=== PATIENT | female | born 1955 | race Hispanic/Latino ===

== ENCOUNTER 2016-11-14 22:35 | Observation (INO) | payer BC ==
[2016-11-14 23:21] VITALS: BMI 31.9
--- NOTE | 2016-11-15 00:25 | ED PDOC ---
Arrival/HPI - General Chief Complaint: GI Problem Time Seen by Provider: 11/14/16 23:58 Historian: Patient, Family - History of Present Illness Narrative History of Present Illness (Text): 11/15/16 00:14 Geena Dykes is a 61 year old female who presents to the emergency department for evaluation of hallucinations and delusions for past two days. According to family, patient thinks that she is being spied upon by neighbors and "are out to get her." They state that she has not experienced psychotic episodes before. Patient states that she had a lumbar spine epidural shot for chronic lower back pain 2 weeks prior, and currently complains of mild back pain. Denies any headache, dizziness, chest pain, difficulty breathing, nausea, vomiting, diarrhea, or any other complaints at this time. Time/Duration: < week Symptom Onset: Gradual Symptom Course: Unchanged Severity Level: Mild Activities at Onset: Light Context: Home Past Medical History - Provider Review Nursing Documentation Reviewed: Yes - Infectious Disease Hx of Infectious Diseases: None - Tetanus Immunization Tetanus Immunization: Unknown - Reproductive Menopause: Yes - Cardiac Hx Hypertension: Yes Hx Pacemaker: No - Neurological Hx Paralysis: No - Endocrine/Metabolic Hx Diabetes Mellitus Type 2: Yes - Hematological/Oncological Hx Blood Transfusions: No Hx Blood Transfusion Reaction: No - Musculoskeletal/Rheumatological Hx Musculoskeletal Disorders: Yes - Gastrointestinal Other/Comment: Gastric bypass - Psychiatric Hx Emotional Abuse: No Hx Hallucinations: Yes Hx Physical Abuse: No Hx Substance Use: No - Surgical History Hx Dilation and Curettage: Yes Other/Comment: Gastric bypass. Polyp removal from vag bleed - Anesthesia Hx Anesthesia: Yes Hx Anesthesia Reactions: No Hx Malignant Hyperthermia: No - Suicidal Assessment Feels Threatened In Home Enviroment: No Family/Social History - Physician Review Nursing Documentation Reviewed: Yes Family/Social History: No Known Family HX Smoking Status: Light Smoker < 10 Cigarettes Daily Hx Alcohol Use: Yes Frequency of alcohol use: Few days per week Hx Substance Use: No Hx Substance Use Treatment: Yes Allergies/Home Meds Allergies/Adverse Reactions: Allergies No Known Allergies Allergy (Verified 11/16/16 19:42) Home Medications: Home Meds Medication Instructions Recorded Confirmed Aspirin [[place] Aspirin] 1 tab DAILY 11/15/16 11/15/16 tiZANidine [Zanaflex] 5 mg PO DAILY 11/15/16 11/15/16 traMADol [Ultram] 50 mg PO Q6H PRN 11/15/16 11/15/16 Review of Systems - Physician Review All systems were reviewed & negative as marked: Yes - Review of Systems Constitutional: Normal. absent: Fatigue, Fevers Respiratory: Normal. absent: SOB, Cough Cardiovascular: Normal. absent: Chest Pain, Palpitations Gastrointestinal: Normal. absent: Abdominal Pain, Diarrhea, Nausea, Vomiting Neurological: Normal. absent: Headache, Dizziness Psychiatric: Other (hallucinations and delusion ) Physical Exam Vital Signs Reviewed: Yes Vital Signs Temp Pulse Resp BP Pulse Ox 11/15/16 05:24 66 18 123/65 99 11/15/16 01:00 72 18 128/79 98 11/14/16 23:27 99.0 F 79 18 131/80 100 Temperature: Afebrile Blood Pressure: Normal Pulse: Regular Respiratory Rate: Normal Appearance: Positive for: Well-Appearing, Non-Toxic, Comfortable Pain Distress: None Mental Status: Positive for: Alert and Oriented X 3 - Systems Exam Head: Present: Atraumatic, Normocephalic Pupils: Present: PERRL Conjunctiva: Present: Normal Mouth: Present: Moist Mucous Membranes Respiratory/Chest: Present: Clear to Auscultation, Good Air Exchange. No: Respiratory Distress, Accessory Muscle Use Cardiovascular: Present: Regular Rate and Rhythm, Normal S1, S2. No: Murmurs Abdomen: Present: Normal Bowel Sounds. No: Tenderness, Distention, Peritoneal Signs Back: Present: Normal Inspection Upper Extremity: Present: Normal Inspection. No: Cyanosis, Edema Lower Extremity: Present: Normal Inspection. No: Edema Neurological: Present: GCS=15, CN II-XII Intact, Speech Normal Skin: Present: Warm, Dry, Normal Color. No: Rashes Psychiatric: Present: Alert, Oriented x 3, Delusional, Hallucinations Medical Decision Making ED Course and Treatment: 11/15/16 00:27 Impression: A 61 year old female who presents to the emergency department complaining of hallucinations and delusion for past 2 days. Plan: -- CT Head -- EKG -- Labs -- Alcohol level -- Druig Screen -- Chest X-ray -- Tylenol -- blood culture -- Reassess and disposition Progress Notes: 11/15/16 05:46 CT Head results reviewed: FINDINGS: Brain: No acute intracranial hemorrhage. No significant white matter disease. No edema. Ventricles: No significant ventriculomegaly. Bones: No acute displaced fracture. Sinuses: Unremarkable as visualized. No acute sinusitis. Mastoid air cells: Unremarkable as visualized. No mastoid effusion. IMPRESSION: No acute intracranial hemorrhage, or suspicious mass effect. Case discussed with who is aware and agrees with the plan to observe patient at Med/Surg for Altered mental status. Accepts patient under his service. 11/16/16 22:27 - Lab Interpretations Microbiology Results: Microbiology Results 11/15/16 02:50 Blood-Venous Blood Culture - Preliminary NO GROWTH AFTER 24 HOURS 11/15/16 02:25 Blood-Venous Blood Culture - Preliminary NO GROWTH AFTER 24 HOURS Lab Results: 11/15/16 02:25 11/15/16 02:25 Lab Results 11/15/16 03:00: Hemoglobin A1c 5.4 11/15/16 02:25: Acetaminophen < 10.0 L 11/15/16 02:25: Alcohol, Quantitative < 10 11/15/16 02:25: Urine Opiates Screen Negative, Urine Methadone Screen Negative, Ur Barbiturates Screen Negative, Ur Phencyclidine Scrn Negative, Ur Amphetamines Screen Negative, U Benzodiazepines Scrn Negative, U Oth Cocaine Metabols Negative, U Cannabinoids Screen Negative 11/15/16 02:25: Sodium 136, Potassium 3.8, Chloride 102, Carbon Dioxide 27, Anion Gap 11, BUN 29 H, Creatinine 0.8, Est GFR ( Amer) > 60, Est GFR ( Non-Af Amer) > 60, Random Glucose 82, Calcium 8.9, Phosphorus 3.4, Magnesium 2.3 H, Total Bilirubin 0.7, AST 35, ALT 49, Alkaline Phosphatase 41, Lactate Dehydrogenase 525, Total Creatine Kinase 242 H, CK-MB (CK-2) 2.3, CK-MB (CK-2) % Cancelled, Troponin I < 0.01, Total Protein 7.0, Albumin 3.9, Globulin 3.1, Albumin/Globulin Ratio 1.3 11/15/16 02:25: Urine Color Yellow, Urine Appearance Sl cloudy, Urine pH 6.0, Ur Specific [place] 1.020, Urine Protein Negative, Urine Glucose (UA) Negative, Urine Ketones Negative, Urine Blood Moderate H, Urine Nitrate Negative, Urine Bilirubin Negative, Urine Urobilinogen 0.2, Ur Leukocyte Esterase Negative, Urine RBC 1 - 3, Urine WBC 0 - 2, Ur Epithelial Cells 1 - 3, Urine Bacteria Small, Hyaline Casts 0 - 2 11/15/16 02:25: PT 10.7, INR 0.99, APTT 24.6 11/15/16 02:25: WBC 6.4 D, RBC 3.45 L, Hgb 12.0, Hct 34.9 L, MCV 101.2, MCH 34.8, MCHC 34.4, RDW 12.9, Plt Count 248, MPV 8.8, Gran % 64.3, Lymph % (Auto) 25.0, Curry % (Auto) 9.1 H, Eos % (Auto) 1.3 L, Baso % (Auto) 0.3, Gran # 4.11, Lymph # 1.6, Curry # 0.6, Eos # 0.1, Baso # 0.02 I have reviewed the lab results: Yes - RAD Interpretation Radiology Orders: 11/15/16 00:27 HEAD W/O CONTRAST [CT] Stat 11/15/16 00:28 CHEST ONE VIEW [RAD] Stat - Medication Orders Current Medication Orders: Discontinued Medications Acetaminophen (Tylenol 325mg Tab) 650 mg PO Q4H PRN PRN Reason: Pain, Mild (1-3) Last Admin: 11/16/16 16:28 Dose: 650 mg Aspirin (Aspirin Chewable) 81 mg PO DAILY [facility] Last Admin: 11/16/16 10:01 Dose: 81 mg Docusate Sodium (Colace) 100 mg PO BID [facility] Last Admin: 11/16/16 10:01 Dose: 100 mg Famotidine (Pepcid) 40 mg PO HS [facility] Last Admin: 11/15/16 21:20 Dose: 40 mg Heparin Sodium (Porcine) (Heparin) 5,000 units SC Q8 [facility] PRN Reason: Protocol Last Admin: 11/16/16 14:35 Dose: 5,000 units Hydrochlorothiazide (Microzide) 12.5 mg PO DAILY [facility] Last Admin: 11/16/16 10:01 Dose: 12.5 mg Insulin Human Lispro (Humalog Low) 0 units SC ACHS [facility] PRN Reason: Protocol Last Admin: 11/16/16 11:42 Dose: Not Given Non-Admin Reason: Blood Sugar Parameter Iohexol (Omnipaque 350 100 Ml) Confirm Administered Dose 350 mg .ROUTE .STK-MED ONE Stop: 11/15/16 17:57 Losartan Potassium (Cozaar) 100 mg PO DAILY [facility] Last Admin: 11/16/16 10:01 Dose: 100 mg Nicotine (Nicoderm Cq) 1 patch TD DAILY [facility] Last Admin: 11/16/16 10:01 Dose: 1 patch Quetiapine Fumarate (Seroquel) 50 mg PO HS [facility] PRN Reason: Protocol Last Admin: 11/15/16 21:20 Dose: 50 mg Re-Assess: Reassess Psych Meds Document 11/15/16 22:20 KGD (Rec: 11/16/16 03:30 KGD [id number]) Reassess Psych Med Effective Quetiapine Fumarate (Seroquel) 100 mg PO HS [facility] PRN Reason: Protocol Tizanidine HCl (Zanaflex) 4 mg PO DAILY [facility] Last Admin: 11/16/16 10:01 Dose: 4 mg - Daliaibe Statement The provider has reviewed the documentation as recorded by the Mary Alice Cooper Provider Attestation: All medical record entries made by the Mary Alice were at my direction and personally dictated by me. I have reviewed the chart and agree that the record accurately reflects my personal performance of the history, physical exam, medical decision making, and the department course for this patient. I have also personally directed, reviewed, and agree with the discharge instructions and disposition. Disposition/Present on Arrival - Present on Arrival Any Indicators Present on Arrival: No History of DVT/PE: No History of Uncontrolled Diabetes: No Urinary Catheter: No History of Decub. Ulcer: No History Surgical Site Infection Following: None - Disposition Have Diagnosis and Disposition been Completed?: Yes Diagnosis: Altered mental status, unspecified Disposition: HOSPITALIZED Disposition Time: 04:40 Condition: GOOD
[2016-11-15 02:40] LABS: ADD MANUAL DIFF? NO
[2016-11-15 02:45] LABS: BASO # 0.02 K/mm3 (0.0-2.0); BASO % 0.3 % (0.0-3.0); EOS # 0.1 (0.0-0.7); EOS % 1.3 % (1.5-5.0); GRAN # 4.11 (1.4-6.5); GRAN % 64.3 % (50.0-68.0); HEMATOCRIT 34.9 % (36.0-48.0); LYMPH # 1.6 (1.2-3.4); MEAN CELL VOLUME 101.2 fL (80.0-105.0); MEAN CORPUSCULAR HEMOGLOBIN 34.8 pg (25.0-35.0); MEAN CORPUSCULAR HGB CONC 34.4 g/dl (31.0-37.0); MEAN PLATELET VOLUME 8.8 fl (7.0-11.0); MONO # 0.6 (0.1-0.6); MONO % 9.1 % (1.0-6.0); PLATELET COUNT 248 10^3/uL (120.0-450.0); RED CELL DISTRIBUTION WIDTH 12.9 % (11.5-14.5); WHITE BLOOD COUNT 6.4 10^3/ul (4.5-11.0)
[2016-11-15 02:54] LABS: URINE BILIRUBIN NEGATIVE (NEGATIVE); URINE BLOOD MODERATE (NEGATIVE); URINE GLUCOSE (UA) NEGATIVE (NEGATIVE); URINE KETONE NEGATIVE (NEGATIVE); URINE LEUKOCYTE ESTERASE NEGATIVE Leu/uL (NEGATIVE); URINE PROTEIN NEGATIVE mg/dL (<30 mg/dL); URINE UROBILINOGEN 0.2 E.U./dL (<1 E.U./dL)
[2016-11-15 02:55] LABS: URINE APPEARANCE SL CLOUDY (CLEAR); URINE COLOR YELLOW (YELLOW)
[2016-11-15 03:00] LABS: INR 0.99 (0.93-1.08); PARTIAL THROMBOPLASTIN TIME 24.6 Seconds (23.7-30.8)
[2016-11-15 03:03] LABS: ALB/GLOB RATIO 1.3 (1.1-1.8); ALKALINE PHOSPHATASE 41 U/L (38-133); ALT/SGPT 49 U/L (7-56); AST/SGOT 35 U/L (15-39); BILIRUBIN,TOTAL 0.7 mg/dL (0.2-1.3); BLOOD UREA NITROGEN 29 mg/dL (7-21); CALCIUM 8.9 mg/dL (8.4-10.5); CARBON DIOXIDE 27 mmol/L (21-33); CHLORIDE 102 mmol/L (98-107); GFR AFRICAN-AMERICAN > 60; GLUCOSE,RANDOM 82 mg/dL (70-110); MAGNESIUM 2.3 mg/dL (1.7-2.2); PHOSPHOROUS 3.4 mg/dL (2.5-4.5); POTASSIUM 3.8 mmol/L (3.6-5.0); SODIUM 136 mmol/L (132-148)
[2016-11-15 03:04] LABS: URINE BACTERIA SMALL (NEG); URINE WBC 0 - 2 /hpf (0-6)
[2016-11-15 03:16] LABS: TROPONIN I < 0.01 ng/mL
--- NOTE | 2016-11-15 06:57 | CP.PCM.HP ---
<Nelda Quiroz - Last Filed: 11/15/16 14:02> History of Present Illness - History of Present Illness History of Present Illness: CC: I haven't been feeling well . Patient is a 61 y/o with PMH of htn, DM, gastric bypass surgery , chronic constipation, OA of the L spine, active tobacco use, brought in by her son for evaluation of hallucination and dilutional behavior. As per patient's son, for the past 2 days patient has been very anxious. In addition, patient's son states patient also thinks neighbors are spying on her, and patient is been very overwhelmed and disoriented that patient left the stove on unattended yesterday. Patient is been sleeping poorly, and last night stopped communicating with the family. As per patient, she has been under a lot of stress lately, has been sleeping, partially because of family demand. Patient denies history for psych disorder. Patient admits to anxiety, insomnia and depression. Patient denies cp, sob, n/v/d. Patient abdominal pain, constipation ( last bowel movement yesterday), denies fever, chills. PMH: As mentioned above PSH: gastric bypass, exp lap Social: smokes a pack a day for over 20 years, drinks a liter of alcohol a day when stressed, denies illicit drug use. 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 Allergy: NKDA Home meds: please see emr for full list. Present on Admission - Present on Admission Any Indicators Present on Admission: No History of DVT/PE: No History of Uncontrolled Diabetes: No Urinary Catheter: No Decubitus Ulcer Present: No Review of Systems - Review of Systems All systems: reviewed and no additional remarkable complaints except Review of Systems: Please see emr for full list. - Neurological Neurological: absent: Dizziness, Numbness, Headaches, Loss of Vision, Syncope - Psychiatric Psychiatric: Anxiety, Behavioral Changes, Hallucinations, Hopelessness, Mood Swings, Panic Attacks. absent: Confusion, Suicidal Ideation Past Patient History - Infectious Disease Hx of Infectious Diseases: None - Tetanus Immunizations Tetanus Immunization: Unknown - Past Medical History & Family History Past Medical History?: Yes - Past Social History Smoking Status: Heavy Smoker > 10 Cigarettes Daily Alcohol: None Drugs: Denies Home Situation {Lives}: With Family - CARDIAC Hx Hypertension: Yes Hx Pacemaker: No - NEUROLOGICAL Hx Paralysis: No - ENDOCRINE/METABOLIC Hx Diabetes Mellitus Type 2: Yes - HEMATOLOGICAL/ONCOLOGICAL Hx Blood Transfusions: No Hx Blood Transfusion Reaction: No - MUSCULOSKELETAL/RHEUMATOLOGICAL Hx Musculoskeletal Disorders: Yes - GASTROINTESTINAL Other/Comment: Gastric bypass - PSYCHIATRIC Hx Emotional Abuse: No Hx Hallucinations: Yes Hx Physical Abuse: No Hx Substance Use: No - SURGICAL HISTORY Hx Dilation and Curettage: Yes Other/Comment: Gastric bypass. Polyp removal from vag bleed - ANESTHESIA Hx Anesthesia: Yes Hx Anesthesia Reactions: No Hx Malignant Hyperthermia: No Meds Allergies/Adverse Reactions: Allergies Allergy/AdvReac Type Severity Reaction Status Date / Time No Known Allergies Allergy Verified 11/21/16 10:45 Physical Exam - Constitutional Appears: No Acute Distress - Head Exam Head Exam: ATRAUMATIC, NORMAL INSPECTION, NORMOCEPHALIC - Eye Exam Eye Exam: EOMI, Normal appearance, PERRL. absent: Scleral icterus - ENT Exam ENT Exam: Mucous Membranes Moist - Neck Exam Neck exam: Positive for: Normal Inspection - Respiratory Exam Respiratory Exam: Clear to Auscultation Bilateral, NORMAL BREATHING PATTERN. absent: Rales, Rhonchi, Wheezes, Respiratory Distress, Stridor - Cardiovascular Exam Cardiovascular Exam: REGULAR RHYTHM, RRR, +S1, +S2. absent: Irregular Rhythm, Systolic Murmur - GI/Abdominal Exam GI & Abdominal Exam: Normal Bowel Sounds, Soft. absent: Distended (obese abdomen. ), Guarding, Hernia, Rigid, Tenderness - Extremities Exam Extremities exam: Positive for: normal inspection - Back Exam Back exam: NORMAL INSPECTION - Neurological Exam Neurological exam: Alert, CN II-XII Intact, Oriented x3, Reflexes Normal Additional comments: No focal neurologic deficit, patient speaking in full sentences. - Psychiatric Exam Psychiatric exam: Anxious - Skin Skin Exam: Dry, Intact, Normal Color, Warm Results - Vital Signs Recent Vital Signs: Last Vital Signs Temp 99.0 F 11/14/16 23:27 Pulse 66 11/15/16 05:24 Resp 18 11/15/16 05:24 BP 123/65 11/15/16 05:24 Pulse Ox 99 11/15/16 05:24 - Labs Result Diagrams: 11/15/16 02:25 11/15/16 02:25 Assessment & Plan - Assessment and Plan (Free Text) Assessment: Patient is a 61 y/o with pmh of htn, NIDDM, OA, active tobacco abuse presenting with AMS. Plan: 1) AMS likely delirium secondary to insomnia/stress - R/o infection, R/o CVA, R/o metabolic disorder - CT head with no acute finding - ua normal, urine and blood cultures are sent. - will obtain tsh, hgba1c, vitamin b12, folate - chest x-ray is normal - utox normal - neuro and psych consult. - continue asa. 2) NIDDM2 - will hold janumet - ISS - Accuchekc ACHS - Carb controlled diet 3) HTN - Will resume losartan and hctz 4) L spine OA - will continue tizanidine. 5) Constipation- will start colase 6) Active tobacco use - Nicotine patch. 7) DVT/GI prophylaxis: heparin sc and pepcid Patient seen, examined, case discussed with Dr Villanueva. - Date & Time Date: 11/15/16 Time: 07:00 <Urbano Villanueva - Last Filed: 12/07/16 13:49> Results - Vital Signs Recent Vital Signs: Last Vital Signs Temp 98.1 F 11/16/16 16:00 Pulse 88 11/16/16 16:00 Resp 20 11/16/16 16:00 BP 136/59 L 11/16/16 16:00 Pulse Ox 95 11/16/16 16:00 - Labs Result Diagrams: 11/16/16 06:20 11/16/16 06:20 Attending/Attestation - Attestation I have personally seen and examined this patient.: Yes I have fully participated in the care of the patient.: Yes I have reviewed all pertinent clinical information: Yes Notes (Text): 12/07/16 13:49 Resident note done after seen and examined by me with discussion. The note is a representation of my history, physical and plan for patient.
--- NOTE | 2016-11-15 07:49 | CT ---
PROCEDURE: CT HEAD WITHOUT CONTRAST. HISTORY: ams COMPARISON: None available. TECHNIQUE: Axial computed tomography images were obtained through the head/brain without intravenous contrast. Radiation dose: Total exam DLP = 689.24 mGy-cm. This CT exam was performed using one or more of the following dose reduction techniques: Automated exposure control, adjustment of the mA and/or kV according to patient size, and/or use of iterative reconstruction technique. FINDINGS: HEMORRHAGE: No intracranial hemorrhage. BRAIN: No mass effect or edema. No atrophy or chronic microvascular ischemic changes. No evidence of acute infarct peer VENTRICLES: Unremarkable. No hydrocephalus. CALVARIUM: Unremarkable. PARANASAL SINUSES: Unremarkable as visualized. No significant inflammatory changes. MASTOID AIR CELLS: Unremarkable as visualized. No inflammatory changes. OTHER FINDINGS: None. IMPRESSION: No intracranial mass, hemorrhage or evidence of acute infarct. Preliminary interpretation of this examination was reported by [facility] at 3:33 a.m. on 11/15/2016. There is concurrence of this report with the preliminary interpretation.
[2016-11-15 09:03] LABS: THYROID STIMULATING HORMONE 0.86 mIU/mL (0.46-4.68)
--- NOTE | 2016-11-15 09:12 | RAD ---
PROCEDURE: CHEST RADIOGRAPH, 1 VIEW HISTORY: pain COMPARISON: 02/11/2015 FINDINGS: LUNGS: Clear. PLEURA: No pneumothorax or pleural fluid seen. CARDIOVASCULAR: Normal. OSSEOUS STRUCTURES: No significant abnormalities. VISUALIZED UPPER ABDOMEN: Normal. OTHER FINDINGS: None. IMPRESSION: No active disease.
[2016-11-15 10:55] LABS: FREE T4 1.08 ng/dL (0.78-2.19)
[2016-11-15] MEDS: Insulin Lispro (humaLOG) LOW Coverage SC SCH ×2 (12:01→17:05)
--- NOTE | 2016-11-15 13:40 | CP.PCM.CON ---
<Scottie Ford - Last Filed: 11/15/16 13:31> History of Present Illness - History of Present Illness History of Present Illness: Neurology Consult Note - Dr. Aviles Service This is a 61 y/o female with hx HTN, DM, insomnia, hx gastric bypass (2002) presenting to ED with reports of visual hallucinations and delusional symptoms. Patient states she has been under a great deal of emotional stress since retiring from her job recently. During this time she has experienced insomnia stating she only sleeps 1 hour a night at times. She states she is unable to fall asleep due to her anxiety. Prior to her presentation she was traveling with a friend and noticed a "turkey" on the side of the road which apparently was not there. The patient states prior to this she had not slept in over one day. Her family was concerned about these symptoms and brought her to the ED. Patient denies auditory, visual or tactile hallucinations prior to or sense the event. She further denies confusion, memory loss, headache, focal deficits, drug or alcohol use. Review of Systems - Constitutional Constitutional: absent: Chills, Fever - EENT Eyes: absent: Blurred Vision, Change in Vision - Cardiovascular Cardiovascular: absent: Chest Pain, Dyspnea - Respiratory Respiratory: absent: Cough, Dyspnea - Gastrointestinal Gastrointestinal: absent: Abdominal Pain, Diarrhea, Nausea, Vomiting - Genitourinary Genitourinary: absent: Dysuria, Hematuria - Musculoskeletal Musculoskeletal: absent: Back Pain, Neck Pain - Integumentary Integumentary: absent: Pruritus, Rash - Neurological Neurological: absent: Abnormal Movements, Abnormal Speech, Behavioral Changes, Confusion, Convulsions, Dizziness, Focal Weakness, Headaches, Memory Loss, Sensory Deficit - Psychiatric Psychiatric: Abnormal Sleep Pattern, Anxiety, Visual Hallucinations. absent: Depression, Memory Loss, Panic Attacks - Endocrine Endocrine: absent: Polydipsia, Polyphagia Past Patient History - Infectious Disease Hx of Infectious Diseases: None - Tetanus Immunizations Tetanus Immunization: Unknown - Past Social History Smoking Status: Light Smoker < 10 Cigarettes Daily - CARDIAC Hx Hypertension: Yes Hx Pacemaker: No - NEUROLOGICAL Hx Paralysis: No - ENDOCRINE/METABOLIC Hx Diabetes Mellitus Type 2: Yes - HEMATOLOGICAL/ONCOLOGICAL Hx Blood Transfusions: No Hx Blood Transfusion Reaction: No - MUSCULOSKELETAL/RHEUMATOLOGICAL Hx Musculoskeletal Disorders: Yes - GASTROINTESTINAL Other/Comment: Gastric bypass - GENITOURINARY/GYNECOLOGICAL Other/Comment: Vaginal bleeding post menopause - PSYCHIATRIC Hx Emotional Abuse: No Hx Hallucinations: Yes Hx Physical Abuse: No Hx Substance Use: No - SURGICAL HISTORY Hx Dilation and Curettage: Yes Other/Comment: Gastric bypass. Polyp removal from vag bleed - ANESTHESIA Hx Anesthesia: Yes Hx Anesthesia Reactions: No Hx Malignant Hyperthermia: No Meds Allergies/Adverse Reactions: Allergies Allergy/AdvReac Type Severity Reaction Status Date / Time No Known Allergies Allergy Verified 11/21/16 10:45 - Medications Medications: Current Medications Acetaminophen (Tylenol 325mg Tab) 650 mg PO Q4H PRN PRN Reason: Pain, Mild (1-3) Last Admin: 11/15/16 09:51 Dose: 650 mg Aspirin (Aspirin Chewable) 81 mg PO DAILY [facility] Last Admin: 11/15/16 09:51 Dose: 81 mg Famotidine (Pepcid) 40 mg PO [facility] Hydrochlorothiazide (Microzide) 12.5 mg PO DAILY [facility] Last Admin: 11/15/16 09:52 Dose: 12.5 mg Insulin Human Lispro (Humalog Low) 0 units SC [facility] PRN Reason: Protocol Losartan Potassium (Cozaar) 100 mg PO DAILY [facility] Last Admin: 11/15/16 09:52 Dose: 100 mg Nicotine (Nicoderm Cq) 1 patch TD DAILY [facility] Last Admin: 11/15/16 09:52 Dose: 1 patch Quetiapine Fumarate (Seroquel) 50 mg PO [facility] PRN Reason: Protocol Tizanidine HCl (Zanaflex) 4 mg PO DAILY [facility] Physical Exam - Constitutional Appears: Non-toxic, No Acute Distress - Head Exam Head Exam: ATRAUMATIC, NORMOCEPHALIC - Eye Exam Eye Exam: EOMI, PERRL - ENT Exam ENT Exam: Mucous Membranes Moist - Neck Exam Neck exam: Positive for: Normal Inspection - Respiratory Exam Respiratory Exam: Clear to Auscultation Bilateral, NORMAL BREATHING PATTERN - Cardiovascular Exam Cardiovascular Exam: REGULAR RHYTHM, +S1, +S2 - GI/Abdominal Exam GI & Abdominal Exam: Normal Bowel Sounds, Soft. absent: Tenderness - Extremities Exam Extremities exam: Negative for: calf tenderness, pedal edema - Back Exam Back exam: FULL ROM, NORMAL INSPECTION - Neurological Exam Neurological exam: Alert, CN II-XII Intact, Oriented x3 - Psychiatric Exam Psychiatric exam: Normal Affect, Normal Mood - Skin Skin Exam: Normal Color, Warm Results - Vital Signs Recent Vital Signs: Last Vital Signs Temp 98.0 F 11/15/16 09:01 Pulse 67 11/15/16 09:01 Resp 18 11/15/16 09:01 BP 167/93 H 11/15/16 09:01 Pulse Ox 100 11/15/16 07:55 - Labs Result Diagrams: 11/15/16 02:25 11/15/16 02:25 Labs: Laboratory Results - last 24 hr 11/15/16 11/15/16 08:00 08:00 Vitamin B12 275 Free T4 1.08 TSH 3rd Generation 0.86 Assessment & Plan - Assessment and Plan (Free Text) Assessment: 61 y/o female with hx DM, HTN, insomnia, anxiety presenting with reports of visual hallucinations. Patient has no known psychiatric history. CT head is unremarkable. Patient is alert and oriented x3 and is no longer experiencing hallucinations. - MRI brain - check VDRL - B12 level, folate level - discussed with attending. <Roni Aviles - Last Filed: 01/11/17 12:01> Results - Vital Signs Recent Vital Signs: Last Vital Signs Temp 98.1 F 11/16/16 16:00 Pulse 88 11/16/16 16:00 Resp 20 11/16/16 16:00 BP 136/59 L 11/16/16 16:00 Pulse Ox 95 11/16/16 16:00 - Labs Result Diagrams: 11/16/16 06:20 11/16/16 06:20 Attending/Attestation - Attestation I have personally seen and examined this patient.: Yes I have fully participated in the care of the patient.: Yes I have reviewed all pertinent clinical information: Yes
[2016-11-15 13:46] LABS: FOLATE > 20.0 ng/mL
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
[2016-11-15 17:40] VITALS: RESP 20
[2016-11-15] MEDS ORDERED: Iohexol 350 MG/100 ML VIAL ONE (17:56)
--- NOTE | 2016-11-15 22:43 | CARD ---
APPROVED REPORT EKG Measurement Heart [id number] <Conclusion> Normal sinus rhythm Normal ECG
[2016-11-16] MEDS: Insulin Lispro (humaLOG) LOW Coverage SC SCH ×3 (02:24→11:42)
[2016-11-16 06:31] LABS: ADD MANUAL DIFF? NO
[2016-11-16 06:54] LABS: BLOOD UREA NITROGEN 19 mg/dL (7-21); CALCIUM 9.1 mg/dL (8.4-10.5); CARBON DIOXIDE 25 mmol/L (21-33); CHLORIDE 105 mmol/L (98-107); GFR AFRICAN-AMERICAN > 60; GLUCOSE,RANDOM 96 mg/dL (70-110); POTASSIUM 4.2 mmol/L (3.6-5.0); SODIUM 137 mmol/L (132-148)
[2016-11-16 06:58] LABS: BASO # 0.01 K/mm3 (0.0-2.0); BASO % 0.2 % (0.0-3.0); EOS # 0.1 (0.0-0.7); EOS % 1.6 % (1.5-5.0); GRAN % 45.2 % (50.0-68.0); HEMATOCRIT 36.8 % (36.0-48.0); LYMPH # 2.3 (1.2-3.4); LYMPH % 45.3 % (22.0-35.0); MEAN CELL VOLUME 101.9 fL (80.0-105.0); MEAN CORPUSCULAR HEMOGLOBIN 34.3 pg (25.0-35.0); MEAN CORPUSCULAR HGB CONC 33.7 g/dl (31.0-37.0); MEAN PLATELET VOLUME 8.8 fl (7.0-11.0); MONO # 0.4 (0.1-0.6); MONO % 7.7 % (1.0-6.0); PLATELET COUNT 234 10^3/uL (120.0-450.0); WHITE BLOOD COUNT 5.1 10^3/ul (4.5-11.0)
--- NOTE | 2016-11-16 08:02 | CP.PCM.PN ---
<Scottie Ford - Last Filed: 11/16/16 07:56> Subjective - Date & Time of Evaluation Date of Evaluation: 11/16/16 Time of Evaluation: 07:56 - Subjective Subjective: Patient seen and examined. Patient states she had about 4 hours of restful sleep last night. She denies further hallucinations, confusion, headache. Patient is aaox3. She does still complain of some anxiety. Objective - Vital Signs/Intake and Output Vital Signs (last 24 hours): Temp Pulse Resp BP Pulse Ox 97.8 F 74 20 139/77 99 11/15/16 17:39 11/15/16 17:39 11/15/16 17:39 11/15/16 17:39 11/15/16 17:39 Intake and Output: 11/16/16 11/16/16 06:59 18:59 Intake Total 900 Balance 900 - Medications Medications: Current Medications Acetaminophen (Tylenol 325mg Tab) 650 mg PO Q4H PRN PRN Reason: Pain, Mild (1-3) Last Admin: 11/15/16 09:51 Dose: 650 mg Aspirin (Aspirin Chewable) 81 mg PO DAILY [facility] Last Admin: 11/15/16 09:51 Dose: 81 mg Docusate Sodium (Colace) 100 mg PO BID [facility] Last Admin: 11/15/16 18:48 Dose: 100 mg Famotidine (Pepcid) 40 mg PO HS [facility] Last Admin: 11/15/16 21:20 Dose: 40 mg Heparin Sodium (Porcine) (Heparin) 5,000 units SC Q8 [facility] PRN Reason: Protocol Last Admin: 11/16/16 05:53 Dose: 5,000 units Hydrochlorothiazide (Microzide) 12.5 mg PO DAILY [facility] Last Admin: 11/15/16 09:52 Dose: 12.5 mg Insulin Human Lispro (Humalog Low) 0 units SC ACHS [facility] PRN Reason: Protocol Last Admin: 11/16/16 07:45 Dose: Not Given Losartan Potassium (Cozaar) 100 mg PO DAILY [facility] Last Admin: 11/15/16 09:52 Dose: 100 mg Nicotine (Nicoderm Cq) 1 patch TD DAILY [facility] Last Admin: 11/15/16 09:52 Dose: 1 patch Quetiapine Fumarate (Seroquel) 50 mg PO HS [facility] PRN Reason: Protocol Last Admin: 11/15/16 21:20 Dose: 50 mg Tizanidine HCl (Zanaflex) 4 mg PO DAILY [facility] Last Admin: 11/15/16 14:11 Dose: 4 mg - Labs Labs: 11/16/16 06:20 11/16/16 06:20 PT 10.7 Seconds (9.9-11.8) 11/15/16 02:25 INR 0.99 (0.93-1.08) 11/15/16 02:25 APTT 24.6 Seconds (23.7-30.8) 11/15/16 02:25 - Constitutional Appears: Non-toxic, No Acute Distress - Head Exam Head Exam: ATRAUMATIC, NORMOCEPHALIC - Eye Exam Eye Exam: EOMI, PERRL - ENT Exam ENT Exam: Mucous Membranes Moist - Neck Exam Neck Exam: Full ROM, Normal Inspection - Respiratory Exam Respiratory Exam: Clear to Ausculation Bilateral. absent: Rales, Rhonchi, Wheezes - Cardiovascular Exam Cardiovascular Exam: REGULAR RHYTHM, +S1, +S2 - GI/Abdominal Exam GI & Abdominal Exam: Soft, Normal Bowel Sounds. absent: Tenderness - Extremities Exam Extremities Exam: Full ROM. absent: Calf Tenderness, Pedal Edema - Neurological Exam Neurological Exam: Alert, Awake, Oriented x3 - Psychiatric Exam Psychiatric exam: Normal Affect, Normal Mood - Skin Skin Exam: Normal Color, Warm Assessment and Plan - Assessment and Plan (Free Text) Assessment: 61 y/o female with hx DM, HTN, insomnia, anxiety presenting with reports of visual hallucinations. Patient has no known psychiatric history. CT head is unremarkable. Patient is alert and oriented x3 and is no longer experiencing hallucinations. - f/u CT head - f/u VDRL - B12 level, folate level are normal - discussed with attending. <Roni Aviles - Last Filed: 01/11/17 12:08> Objective - Vital Signs/Intake and Output Vital Signs (last 24 hours): Temp Pulse Resp BP Pulse Ox 98.1 F 88 20 136/59 L 95 11/16/16 16:00 11/16/16 16:00 11/16/16 16:00 11/16/16 16:00 11/16/16 16:00 - Labs Labs: 11/16/16 06:20 11/16/16 06:20 PT 10.7 Seconds (9.9-11.8) 11/15/16 02:25 INR 0.99 (0.93-1.08) 11/15/16 02:25 APTT 24.6 Seconds (23.7-30.8) 11/15/16 02:25 Attending/Attestation - Attestation I have personally seen and examined this patient.: Yes I have fully participated in the care of the patient.: Yes I have reviewed all pertinent clinical information, including history, physical exam and plan: Yes
--- NOTE | 2016-11-16 12:11 | CP.PCM.PN ---
Subjective - Date & Time of Evaluation Date of Evaluation: 11/16/16 Time of Evaluation: 07:10 Objective - Vital Signs/Intake and Output Vital Signs (last 24 hours): Temp Pulse Resp BP Pulse Ox 98.2 F 77 20 137/55 L 100 11/16/16 08:00 11/16/16 08:00 11/16/16 08:00 11/16/16 08:00 11/16/16 08:00 Intake and Output: 11/16/16 11/16/16 06:59 18:59 Intake Total 900 Balance 900 - Medications Medications: Current Medications Acetaminophen (Tylenol 325mg Tab) 650 mg PO Q4H PRN PRN Reason: Pain, Mild (1-3) Last Admin: 11/16/16 10:05 Dose: 650 mg Aspirin (Aspirin Chewable) 81 mg PO DAILY [facility] Last Admin: 11/16/16 10:01 Dose: 81 mg Docusate Sodium (Colace) 100 mg PO BID [facility] Last Admin: 11/16/16 10:01 Dose: 100 mg Famotidine (Pepcid) 40 mg PO HS [facility] Last Admin: 11/15/16 21:20 Dose: 40 mg Heparin Sodium (Porcine) (Heparin) 5,000 units SC Q8 [facility] PRN Reason: Protocol Last Admin: 11/16/16 05:53 Dose: 5,000 units Hydrochlorothiazide (Microzide) 12.5 mg PO DAILY [facility] Last Admin: 11/16/16 10:01 Dose: 12.5 mg Insulin Human Lispro (Humalog Low) 0 units SC ACHS [facility] PRN Reason: Protocol Last Admin: 11/16/16 07:45 Dose: Not Given Losartan Potassium (Cozaar) 100 mg PO DAILY [facility] Last Admin: 11/16/16 10:01 Dose: 100 mg Nicotine (Nicoderm Cq) 1 patch TD DAILY [facility] Last Admin: 11/16/16 10:01 Dose: 1 patch Quetiapine Fumarate (Seroquel) 100 mg PO HS [facility] PRN Reason: Protocol Tizanidine HCl (Zanaflex) 4 mg PO DAILY [facility] Last Admin: 11/16/16 10:01 Dose: 4 mg - Labs Labs: 11/16/16 06:20 11/16/16 06:20 PT 10.7 Seconds (9.9-11.8) 05/16/17 02:25 INR 0.99 (0.93-1.08) 11/15/16 02:25 APTT 24.6 Seconds (23.7-30.8) 11/15/16 02:25 Assessment and Plan - Assessment and Plan (Free Text) Assessment: Patient is a 61 y/o with pmh of htn, NIDDM, OA, active tobacco abuse presenting with AMS Plan: 1) AMS likely delirium secondary to 2) NIDDM2 t 3) HTN - Will resume losartan and hctz 4) L spine OA - will continue tizanidine. 5) Constipation- will start colase 6) Active tobacco use - Nicotine patch. 7) DVT/GI prophylaxis: heparin sc and pepcid
--- NOTE | 2016-11-16 12:27 | PN ---
DATE: 11/16/2016 The patient ____. VITAL SIGNS: Stable. Temperature 98.2, pulse 77, blood pressure 137/55, respirations 20, oxygen sat uration is 100. MEDICATIONS: The patient was compliant with the medication. The patient is on Seroquel 50 mg, was w illing to increase the dose to 100 mg at the nighttime. LABORATORY DATA: Reviewed. Most recent was from today, seems to be improving. MENTAL STATUS EXAMINATION: The patient presented to be alert, pleasant, not tearful today. Affect i s brighter. Intense eye contact. Speech was over inclusive, over productive. Thought process circu mstantial and tangential. Thought content: The patient obviously paranoid as well as disorganized i n her thoughts, but with mild improvement. Denied hearing voices, denied seeing things. Insight and judgment are limited, but seem to be improving. Impulses are well controlled. IMPRESSION: Psychosis, not otherwise specified; rule out delirium, rule out late onset of schizophre conrad, rule out delusional disorder. PLAN: Continue current management. The patient's Seroquel was increased to 100 mg at the nighttime. The patient was offered to be transferred to the psychiatric inpatient unit. The patient wants to speak to her son about that plan. The patient also wants to septic to the medical team. No objectio n overt that. The patient needs further evaluation and stabilization into the psychiatric inpatient unit. This check writer is not sure if patient meets criteria for involuntary commitment. We will follow up on this patient and advise accordingly. If patient will be cleared by medical team, I will sign social media community manager to sign consent. Meanwhile, continue current management. Continue current medications . We will follow up and advise accordingly Kathy Clay MD cc: [phone] TT: 11/16/2016 10:46:21 Confirmation # [id number] Dictation # [id number] tn
--- NOTE | 2016-11-16 14:23 | CT ---
PROCEDURE: CT Angiography of the Brain. HISTORY: ams COMPARISON: None available. TECHNIQUE: CT angiography of the intracranial arteries was performed. Coronal and sagittal maximum intensity projection reformated images were generated. This CT exam was performed using one or more of the following dose reduction techniques: Automated exposure control, adjustment of the mA and/or kV according to patient size, and/or use of iterative reconstruction technique. 100 cc of Omni 350. FINDINGS: INTERNAL CEREBRAL ARTERIES: Unremarkable. The skull base, petrous, cavernous and supraclinoid segments are bilaterally widely patient. ANTERIOR CEREBRAL ARTERIES: Unremarkable. A1 and A2 segments are widely patent. Smaller distal branches unremarkable, as visualized. MIDDLE CEREBRAL ARTERIES: Unremarkable. M1 and M2 segments are widely patent. Perisylvian branches grossly symmetric. POSTERIOR CIRCULATION: Basilar Artery: Unremarkable. Distal Vertebral Arteries: Unremarkable. Posterior Cerebral Arteries: Unremarkable. Posterior Inferior Cerebellar Arteries: Unremarkable. ANEURYSM/ VASCULAR MALFORMATIONS: None. OTHER FINDINGS: The report concurs with the preliminary [facility] report IMPRESSION: Unremarkable CT Angiography of the Brain.
--- NOTE | 2016-11-16 15:23 | CP.PCM.DIS ---
<Nelda Quiroz - Last Filed: 11/21/16 19:26> Provider - Provider Date of Admission: 11/15/16 04:38 Attending physician: Urbano Villanueva MD Primary care physician: Garth Carnes MD Consults: Psych Neuro Time Spent in preparation of Discharge (in minutes): 40 Diagnosis - Discharge Diagnosis (1) Hallucination Status: Acute (2) Altered mental status, unspecified Status: Acute (3) Disorganized behavior Status: Acute (4) HTN (hypertension) Status: Acute (5) Diabetes Status: Acute Hospital Course - Lab Results Lab Results: Most Recent Lab Values WBC 5.1 10^3/ul (4.5-11.0) D 11/16/16 06:20 RBC 3.61 10^6/uL (3.5-6.1) 11/16/16 06:20 Hgb 12.4 gm/dL (12.0-16.0) 11/16/16 06:20 Hct 36.8 % (36.0-48.0) 11/16/16 06:20 MCV 101.9 fL (80.0-105.0) 11/16/16 06:20 MCH 34.3 pg (25.0-35.0) 11/16/16 06:20 MCHC 33.7 g/dl (31.0-37.0) 11/16/16 06:20 RDW 13.0 % (11.5-14.5) 11/16/16 06:20 Plt Count 234 10^3/uL (120.0-450.0) 11/16/16 06:20 MPV 8.8 fl (7.0-11.0) 11/16/16 06:20 Gran % 45.2 % (50.0-68.0) L 11/16/16 06:20 Lymph % (Auto) 45.3 % (22.0-35.0) H 11/16/16 06:20 [place] % (Auto) 7.7 % (1.0-6.0) H 11/16/16 06:20 Eos % (Auto) 1.6 % (1.5-5.0) 11/16/16 06:20 Baso % (Auto) 0.2 % (0.0-3.0) 11/16/16 06:20 Gran # 2.30 (1.4-6.5) 11/16/16 06:20 Lymph # 2.3 (1.2-3.4) 11/16/16 06:20 [place] # 0.4 (0.1-0.6) 11/16/16 06:20 Eos # 0.1 (0.0-0.7) 11/16/16 06:20 Baso # 0.01 K/mm3 (0.0-2.0) 11/16/16 06:20 PT 10.7 Seconds (9.9-11.8) 11/15/16 02:25 INR 0.99 (0.93-1.08) 11/15/16 02:25 APTT 24.6 Seconds (23.7-30.8) 11/15/16 02:25 Sodium 137 mmol/L (132-148) 11/16/16 06:20 Potassium 4.2 mmol/L (3.6-5.0) 11/16/16 06:20 Chloride 105 mmol/L (98-107) 11/16/16 06:20 Carbon Dioxide 25 mmol/L (21-33) 11/16/16 06:20 Anion Gap 11 (10-20) 11/16/16 06:20 BUN 19 mg/dL (7-21) 11/16/16 06:20 Creatinine 0.7 mg/dL (0.5-1.4) 11/16/16 06:20 Est GFR ( Amer) > 60 11/16/16 06:20 Est GFR (Non-Af Amer) > 60 11/16/16 06:20 Random Glucose 96 mg/dL (70-110) 11/16/16 06:20 Hemoglobin A1c 5.4 % (4.2-6.5) 11/15/16 03:00 Calcium 9.1 mg/dL (8.4-10.5) 11/16/16 06:20 Phosphorus 3.4 mg/dL (2.5-4.5) 11/15/16 02:25 Magnesium 2.3 mg/dL (1.7-2.2) H 11/15/16 02:25 Total Bilirubin 0.7 mg/dL (0.2-1.3) 11/15/16 02:25 AST 35 U/L (15-39) 11/15/16 02:25 ALT 49 U/L (7-56) 11/15/16 02:25 Alkaline Phosphatase 41 U/L (38-133) 11/15/16 02:25 Lactate Dehydrogenase 525 U/L (333-699) 11/15/16 02:25 Total Creatine Kinase 242 U/L (35-230) H 11/15/16 02:25 CK-MB (CK-2) 2.3 ng/mL (0.0-3.6) 11/15/16 02:25 CK-MB (CK-2) % Cancelled 11/15/16 02:25 Troponin I < 0.01 ng/mL 11/15/16 02:25 Total Protein 7.0 g/dL (5.8-8.3) 11/15/16 02:25 Albumin 3.9 g/dL (3.0-4.8) 11/15/16 02:25 Globulin 3.1 gm/dL 11/15/16 02:25 Albumin/Globulin Ratio 1.3 (1.1-1.8) 11/15/16 02:25 Vitamin B12 275 pg/mL (239-931) 11/15/16 08:00 Folate > 20.0 ng/mL 11/15/16 08:00 Free T4 1.08 ng/dL (0.78-2.19) 11/15/16 08:00 TSH 3rd Generation 0.86 mIU/mL (0.46-4.68) 11/15/16 08:00 Urine Color Yellow (YELLOW) 11/15/16 02:25 Urine Appearance Sl cloudy (CLEAR) 11/15/16 02:25 Urine pH 6.0 (4.7-8.0) 11/15/16 02:25 Ur Specific [place] 1.020 (1.005-1.035) 11/15/16 02:25 Urine Protein Negative mg/dL (<30 mg/dL) 11/15/16 02:25 Urine Glucose (UA) Negative mg/dL (NEGATIVE) 11/15/16 02:25 Urine Ketones Negative mg/dL (NEGATIVE) 11/15/16 02:25 Urine Blood Moderate (NEGATIVE) H 11/15/16 02:25 Urine Nitrate Negative (NEGATIVE) 11/15/16 02:25 Urine Bilirubin Negative (NEGATIVE) 11/15/16 02:25 Urine Urobilinogen 0.2 E.U./dL (<1 E.U./dL) 11/15/16 02:25 Ur Leukocyte Esterase Negative Jonathan/uL (NEGATIVE) 11/15/16 02:25 Urine RBC 1 - 3 /hpf (0-2) 11/15/16 02:25 Urine WBC 0 - 2 /hpf (0-6) 11/15/16 02:25 Ur Epithelial Cells 1 - 3 /hpf (0-5) 11/15/16 02:25 Urine Bacteria Small (NEG) 11/15/16 02:25 Hyaline Casts 0 - 2 /hpf 11/15/16 02:25 Urine Opiates Screen Negative (NEGATIVE) 11/15/16 02:25 Urine Methadone Screen Negative (NEGATIVE) 11/15/16 02:25 Acetaminophen < 10.0 ug/ml (10.0-20.0) L 11/15/16 02:25 Ur Barbiturates Screen Negative (NEGATIVE) 11/15/16 02:25 Ur Phencyclidine Scrn Negative (NEGATIVE) 11/15/16 02:25 Ur Amphetamines Screen Negative (NEGATIVE) 11/15/16 02:25 U Benzodiazepines Scrn Negative (NEGATIVE) 11/15/16 02:25 U Oth Cocaine Metabols Negative (NEGATIVE) 11/15/16 02:25 U Cannabinoids Screen Negative (NEGATIVE) 11/15/16 02:25 Alcohol, Quantitative < 10 mg/dL (0-10) 11/15/16 02:25 - Hospital Course Hospital Course: Patient is a 61 y/o with pmh of DM, HTN, Gastric bypass, and OA brought in by family secondary to dilusional behavior and hallucination. Patient underwent mechanical work up which was normal, including normal CT head, tsh, vitamin b12 , folate. Patient also had lyme titer and vdrl which are pending. Patient was evaluated by psych and was deemed to be experiencing disorganized thought, requiring inpatient psych for further evaluation. Patient to be discharged to psych and will continue to follow. - Date & Time of H&P Date of H&P: 11/15/16 Time of H&P: 06:57 Discharge Exam - Head Exam Head Exam: ATRAUMATIC, NORMOCEPHALIC - Eye Exam Eye Exam: EOMI, Normal appearance, PERRL. absent: Scleral icterus - ENT Exam ENT Exam: Normal Exam - Neck Exam Neck exam: Normal Inspection - Respiratory Exam Respiratory Exam: Clear to PA & Lateral, NORMAL BREATHING PATTERN, UNREMARKABLE. absent: Rales, Rhonchi, Wheezes, Respiratory Distress, Stridor - Cardiovascular Exam Cardiovascular Exam: REGULAR RHYTHM, RRR, +S1, +S2 - GI/Abdominal Exam GI & Abdominal Exam: Normal Bowel Sounds, Unremarkable. absent: Distended, Firm , Guarding, Rigid, Soft, Tenderness - Extremities Exam Extremities exam: normal inspection - Back Exam Back exam: NORMAL INSPECTION. absent: vertebral tenderness - Neurological Exam Neurological exam: Alert, Oriented x3 - Psychiatric Exam Psychiatric exam: Anxious - Skin Skin Exam: Dry, Intact, Normal Color Discharge Plan - Follow Up Plan Condition: GOOD Disposition: DISCHARGE TO PSYCH HOSPITAL Instructions: Hypertension (DC), Altered Mental Status (GEN), Hallucinations ( DC) Additional Instructions: You are being discharged to for psychiatric care. Referrals: Garth Carnes MD [Primary Care Provider] - <Garth Carnes - Last Filed: 12/14/16 14:55> Provider - Provider Date of Admission: 11/15/16 04:38 Attending physician: Urbano Villanueva MD Primary care physician: Garth Carnes MD Hospital Course - Lab Results Lab Results: Most Recent Lab Values WBC 5.1 10^3/ul (4.5-11.0) D 11/16/16 06:20 RBC 3.61 10^6/uL (3.5-6.1) 11/16/16 06:20 Hgb 12.4 gm/dL (12.0-16.0) 11/16/16 06:20 Hct 36.8 % (36.0-48.0) 11/16/16 06:20 MCV 101.9 fL (80.0-105.0) 11/16/16 06:20 MCH 34.3 pg (25.0-35.0) 11/16/16 06:20 MCHC 33.7 g/dl (31.0-37.0) 11/16/16 06:20 RDW 13.0 % (11.5-14.5) 11/16/16 06:20 Plt Count 234 10^3/uL (120.0-450.0) 11/16/16 06:20 MPV 8.8 fl (7.0-11.0) 11/16/16 06:20 Gran % 45.2 % (50.0-68.0) L 11/16/16 06:20 Lymph % (Auto) 45.3 % (22.0-35.0) H 11/16/16 06:20 [place] % (Auto) 7.7 % (1.0-6.0) H 11/16/16 06:20 Eos % (Auto) 1.6 % (1.5-5.0) 11/16/16 06:20 Baso % (Auto) 0.2 % (0.0-3.0) 11/16/16 06:20 Gran # 2.30 (1.4-6.5) 11/16/16 06:20 Lymph # 2.3 (1.2-3.4) 11/16/16 06:20 [place] # 0.4 (0.1-0.6) 11/16/16 06:20 Eos # 0.1 (0.0-0.7) 11/16/16 06:20 Baso # 0.01 K/mm3 (0.0-2.0) 11/16/16 06:20 PT 10.7 Seconds (9.9-11.8) 11/15/16 02:25 INR 0.99 (0.93-1.08) 11/15/16 02:25 APTT 24.6 Seconds (23.7-30.8) 11/15/16 02:25 Sodium 137 mmol/L (132-148) 11/16/16 06:20 Potassium 4.2 mmol/L (3.6-5.0) 11/16/16 06:20 Chloride 105 mmol/L (98-107) 11/16/16 06:20 Carbon Dioxide 25 mmol/L (21-33) 11/16/16 06:20 Anion Gap 11 (10-20) 11/16/16 06:20 BUN 19 mg/dL (7-21) 11/16/16 06:20 Creatinine 0.7 mg/dL (0.5-1.4) 11/16/16 06:20 Est GFR ( Amer) > 60 11/16/16 06:20 Est GFR (Non-Af Amer) > 60 11/16/16 06:20 POC Glucose (mg/dL) 129 mg/dL (65-110) H 11/17/16 11:21 Random Glucose 96 mg/dL (70-110) 11/16/16 06:20 Hemoglobin A1c 5.4 % (4.2-6.5) 11/15/16 03:00 Calcium 9.1 mg/dL (8.4-10.5) 11/16/16 06:20 Phosphorus 3.4 mg/dL (2.5-4.5) 11/15/16 02:25 Magnesium 2.3 mg/dL (1.7-2.2) H 11/15/16 02:25 Total Bilirubin 0.7 mg/dL (0.2-1.3) 11/15/16 02:25 AST 35 U/L (15-39) 11/15/16 02:25 ALT 49 U/L (7-56) 11/15/16 02:25 Alkaline Phosphatase 41 U/L (38-133) 11/15/16 02:25 Lactate Dehydrogenase 525 U/L (333-699) 11/15/16 02:25 Total Creatine Kinase 242 U/L (35-230) H 11/15/16 02:25 CK-MB (CK-2) 2.3 ng/mL (0.0-3.6) 11/15/16 02:25 CK-MB (CK-2) % Cancelled 11/15/16 02:25 Troponin I < 0.01 ng/mL 11/15/16 02:25 Total Protein 7.0 g/dL (5.8-8.3) 11/15/16 02:25 Albumin 3.9 g/dL (3.0-4.8) 11/15/16 02:25 Globulin 3.1 gm/dL 11/15/16 02:25 Albumin/Globulin Ratio 1.3 (1.1-1.8) 11/15/16 02:25 Vitamin B12 275 pg/mL (239-931) 11/15/16 08:00 Folate > 20.0 ng/mL 11/15/16 08:00 Free T4 1.08 ng/dL (0.78-2.19) 11/15/16 08:00 TSH 3rd Generation 0.86 mIU/mL (0.46-4.68) 11/15/16 08:00 Urine Color Yellow (YELLOW) 11/15/16 02:25 Urine Appearance Sl cloudy (CLEAR) 11/15/16 02:25 Urine pH 6.0 (4.7-8.0) 11/15/16 02:25 Ur Specific [place] 1.020 (1.005-1.035) 11/15/16 02:25 Urine Protein Negative mg/dL (<30 mg/dL) 11/15/16 02:25 Urine Glucose (UA) Negative mg/dL (NEGATIVE) 11/15/16 02:25 Urine Ketones Negative mg/dL (NEGATIVE) 11/15/16 02:25 Urine Blood Moderate (NEGATIVE) H 11/15/16 02:25 Urine Nitrate Negative (NEGATIVE) 11/15/16 02:25 Urine Bilirubin Negative (NEGATIVE) 11/15/16 02:25 Urine Urobilinogen 0.2 E.U./dL (<1 E.U./dL) 11/15/16 02:25 Ur Leukocyte Esterase Negative Jonathan/uL (NEGATIVE) 11/15/16 02:25 Urine RBC 1 - 3 /hpf (0-2) 11/15/16 02:25 Urine WBC 0 - 2 /hpf (0-6) 11/15/16 02:25 Ur Epithelial Cells 1 - 3 /hpf (0-5) 11/15/16 02:25 Urine Bacteria Small (NEG) 11/15/16 02:25 Hyaline Casts 0 - 2 /hpf 11/15/16 02:25 Urine Opiates Screen Negative (NEGATIVE) 11/15/16 02:25 Urine Methadone Screen Negative (NEGATIVE) 11/15/16 02:25 Acetaminophen < 10.0 ug/ml (10.0-20.0) L 11/15/16 02:25 Ur Barbiturates Screen Negative (NEGATIVE) 11/15/16 02:25 Ur Phencyclidine Scrn Negative (NEGATIVE) 11/15/16 02:25 Ur Amphetamines Screen Negative (NEGATIVE) 11/15/16 02:25 U Benzodiazepines Scrn Negative (NEGATIVE) 11/15/16 02:25 U Oth Cocaine Metabols Negative (NEGATIVE) 11/15/16 02:25 U Cannabinoids Screen Negative (NEGATIVE) 11/15/16 02:25 Alcohol, Quantitative < 10 mg/dL (0-10) 11/15/16 02:25 Lyme Disease IgG Ab (IFA) Negative (NEGATIVE) 11/16/16 06:20 Lyme Disease IgM Ab Negative (NEGATIVE) 11/16/16 06:20 Attending/Attestation - Attestation I have personally seen and examined this patient.: Yes I have fully participated in the care of the patient.: Yes I have reviewed all pertinent clinical information, including history, physical exam and plan: Yes Notes (Text): 12/14/16 14:55 Medical record note made by the resident after discussion with my direction and input after the patient was personally seen and examined by me. I have reviewed the chart and agree that the record accurately reflects by personal performance of the history, physical exam, data review, and medical decision-making, in the course for the patient. I have also personally directed the plan of care. .
[2016-11-16 17:20] VITALS: BP 136/59; PULSE 88; TEMP 98.1; O2SAT 95
[2016-11-16 18:58] LABS: LYME IGG NEGATIVE (NEGATIVE)
[2016-11-16 19:02] LABS: LYME IGM NEGATIVE (NEGATIVE)
== END 2016-11-16 18:54 ==
LOC: ED 22:35 → ERH 11-15 04:38 → 5RNO 11-15 07:19
PROVIDERS: ADMIT Internal Medicine; ATTEND Internal Medicine
DX: R41.82 Altered mental status, unspecified (principal); R44.1 Visual hallucinations; F22 Delusional disorders; F41.9 Anxiety disorder, unspecified; I10 Essential (primary) hypertension; K59.09 Other constipation; F17.210 Nicotine dependence, cigarettes, uncomplicated; E11.9 Type 2 diabetes mellitus without complications; G47.00 Insomnia, unspecified; G89.29 Other chronic pain; M54.5 Low back pain; Z98.84 Bariatric surgery status
CPT/HCPCS: 36415; 70450; 70496; 71010; 80048; 80053; 81001; 82550; 82553; 82607; 82746; 82948; 83036; 83615; 83735; 84100; 84439; 84443; 84484; 85025; 85610; 85730; 86618; 87040; 87086; 93005; 99285; G0378; G0480; J1644; Q9967

== ENCOUNTER 2016-11-16 18:58 | Inpatient (IN) | payer BC ==
[2016-11-16] MEDS ORDERED: Alum-Mag Hydrox-Simethicone Susp (30 mL) PO PRN (19:54)
[2016-11-16] MEDS ORDERED: Magnesium Hydroxide Susp 30 ml UD PO PRN (19:54)
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
--- NOTE | 2016-11-17 21:01 | CP.PCM.CON ---
<Nelda Quiroz - Last Filed: 11/18/16 19:37> History of Present Illness - History of Present Illness History of Present Illness: Patient is a 61 y/o with pmh of DM, HTN, Gastric bypass, and OA brought in by family secondary to dilusional behavior and hallucination. Patient underwent medical work up which was normal, including normal CT head, tsh, vitamin b12, folate. Patient also had lyme titer and vdrl which are pending. Patient was evaluated by psych and was deemed to be experiencing disorganized thought, requiring inpatient psych for further evaluation. Patient is currently admitted to psych, and will continue to follow for medical management of DM and htn. Patient currently denies cp, sob, headache, dizziness. Patient c/o back chest, and constipation. PMH: As mentioned above PSH: gastric bypass, exp lap Social: smokes a pack a day for over 20 years, drinks a liter of alcohol a day when stressed, denies illicit drug use. 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 Allergy: NKDA Review of Systems - Review of Systems All systems: reviewed and no additional remarkable complaints except Review of Systems: As mentioned in HPI. Past Patient History - Infectious Disease Hx of Infectious Diseases: None - Tetanus Immunizations Tetanus Immunization: Unknown - Past Medical History & Family History Past Medical History?: Yes - Past Social History Smoking Status: Heavy Smoker > 10 Cigarettes Daily Alcohol: > 2 Drinks/Day Drugs: Denies Home Situation {Lives}: With Family - CARDIAC Hx Hypertension: Yes Hx Pacemaker: No - PULMONARY Hx Respiratory Disorders: No - NEUROLOGICAL Hx Alzheimer's Disease: No Hx Paralysis: No - HEENT Hx HEENT Problems: No - RENAL Hx Chronic Kidney Disease: No - ENDOCRINE/METABOLIC Hx Endocrine Disorders: No Hx Diabetes Mellitus Type 2: Yes - HEMATOLOGICAL/ONCOLOGICAL Hx Blood Disorders: No Hx Blood Transfusions: No Hx Blood Transfusion Reaction: No - INTEGUMENTARY Hx Dermatological Problems: No - MUSCULOSKELETAL/RHEUMATOLOGICAL Hx Musculoskeletal Disorders: Yes - GASTROINTESTINAL Hx Gastrointestinal Disorders: No Other/Comment: Gastric bypass - GENITOURINARY/GYNECOLOGICAL Other/Comment: Vaginal bleeding post menopause - PSYCHIATRIC Hx Anxiety: Yes Hx Depression: Yes (Slight after the passing of her father June 2016) Hx Emotional Abuse: No Hx Physical Abuse: No Hx Substance Use: No - SURGICAL HISTORY Hx Surgeries: No Hx Dilation and Curettage: Yes Other/Comment: Gastric bypass. Polyp removal from vag bleed - ANESTHESIA Hx Anesthesia: Yes Hx Anesthesia Reactions: No Hx Malignant Hyperthermia: No Meds Allergies/Adverse Reactions: Allergies Allergy/AdvReac Type Severity Reaction Status Date / Time No Known Allergies Allergy Verified 11/21/16 10:45 - Medications Medications: Current Medications Acetaminophen (Tylenol 325mg Tab) 650 mg PO Q4H PRN PRN Reason: Pain, Mild (1-3) Al Hydrox/Mg Hydrox/Simethicone (Maalox Plus 30 Ml) 30 ml PO DAILY PRN PRN Reason: Upset Stomach Aspirin (Aspirin Chewable) 81 mg PO DAILY LEANDRO Docusate Sodium (Colace) 100 mg PO BID LEANDRO Famotidine (Pepcid) 40 mg PO HS LEANDRO Last Admin: 11/16/16 21:53 Dose: 40 mg Hydrochlorothiazide (Microzide) 12.5 mg PO DAILY LEANDRO Lorazepam (Ativan) 0.5 mg PO TID PRN; Protocol PRN Reason: Anxiety Last Admin: 11/16/16 23:10 Dose: 0.5 mg Losartan Potassium (Cozaar) 100 mg PO DAILY LEANDRO Magnesium Hydroxide (Milk Of Magnesia) 30 ml PO DAILY PRN PRN Reason: Constipation Nicotine (Nicoderm Cq) 1 patch TD DAILY LEANDRO Quetiapine Fumarate (Seroquel) 100 mg PO HS LEANDRO PRN Reason: Protocol Last Admin: 11/16/16 21:53 Dose: 100 mg Tizanidine HCl (Zanaflex) 5 mg PO DAILY LEANDRO Ziprasidone (Geodon Cap) 20 mg PO Q8H PRN; Protocol PRN Reason: Agitation Physical Exam - Constitutional Appears: No Acute Distress - Head Exam Head Exam: ATRAUMATIC, NORMAL INSPECTION, NORMOCEPHALIC - Eye Exam Eye Exam: EOMI, Normal appearance, PERRL. absent: Scleral icterus - ENT Exam ENT Exam: Mucous Membranes Moist - Neck Exam Neck exam: Positive for: Normal Inspection - Respiratory Exam Respiratory Exam: Clear to Auscultation Bilateral, NORMAL BREATHING PATTERN. absent: Rales, Rhonchi, Wheezes, Respiratory Distress, Stridor - Cardiovascular Exam Cardiovascular Exam: REGULAR RHYTHM, RRR, +S1, +S2. absent: Systolic Murmur - GI/Abdominal Exam GI & Abdominal Exam: Normal Bowel Sounds, Soft. absent: Distended, Firm, Guarding, Rigid, Tenderness - Extremities Exam Extremities exam: Positive for: pedal edema - Back Exam Back exam: NORMAL INSPECTION - Neurological Exam Neurological exam: Alert, Oriented x3 - Psychiatric Exam Psychiatric exam: Anxious - Skin Skin Exam: Dry, Intact, Normal Color Results - Vital Signs Recent Vital Signs: Last Vital Signs Temp 98.3 F 11/16/16 20:14 Pulse 77 11/16/16 20:14 Resp 22 11/16/16 20:34 BP 139/72 11/16/16 20:14 Pulse Ox - Labs Result Diagrams: 11/18/16 07:00 11/18/16 07:00 Assessment & Plan - Assessment and Plan (Free Text) Assessment: Patient is a 61 y/o with pmh of DM, HTN, Gastric bypass, and OA brought in by family secondary to dilusional behavior and hallucination. Following patient for management of htn and DM. Plan: 1) constipation- continue miralax, and colace. 2) NIDDM2 - controlled - HGBA1C 5.3 - Hold janumet 3) HTN - Will continue losartan and hctz 4) L spine OA - will continue tizanidine. 6) Active tobacco use - Nicotine patch. 7) mental status- management as per psych. 7) DVT/GI prophylaxis: heparin sc and pepcid Patient seen, examined, case discussed with Dr Villanueva. - Date & Time Date: 11/17/16 Time: 09:55 <Urbano Villanueva - Last Filed: 12/07/16 13:50> Results - Vital Signs Recent Vital Signs: Last Vital Signs Temp 97.6 F 11/22/16 09:39 Pulse 71 11/22/16 16:12 Resp 20 11/22/16 09:39 BP 153/84 H 11/22/16 16:12 Pulse Ox - Labs Result Diagrams: 11/21/16 07:30 11/21/16 07:30 Attending/Attestation - Attestation I have personally seen and examined this patient.: Yes I have fully participated in the care of the patient.: Yes I have reviewed all pertinent clinical information: Yes Notes (Text): 12/07/16 13:49 Resident note done after seen and examined by me with discussion. The note is a representation of my history, physical and plan for patient.
[2016-11-17] MEDS ORDERED: POLYETHYLENE GLYCOL 3350 17 GM/Dose PACKET PO ONE (21:49)
[2016-11-18 08:00] LABS: ADD MANUAL DIFF? NO
[2016-11-18 08:21] LABS: BLOOD UREA NITROGEN 27 mg/dL (7-21); CALCIUM 9.2 mg/dL (8.4-10.5); CARBON DIOXIDE 29 mmol/L (21-33); CHLORIDE 100 mmol/L (98-107); CHOLESTEROL 141 mg/dL (130-200); GFR AFRICAN-AMERICAN > 60; GLUCOSE,RANDOM 117 mg/dL (70-110); POTASSIUM 4.4 mmol/L (3.6-5.0); SODIUM 137 mmol/L (132-148)
[2016-11-18] MEDS: POLYETHYLENE GLYCOL 3350 17 GM/Dose PACKET PO SCH (08:49)
[2016-11-18 09:17] LABS: BASO # 0.02 K/mm3 (0.0-2.0); BASO % 0.4 % (0.0-3.0); EOS # 0.1 (0.0-0.7); EOS % 1.8 % (1.5-5.0); GRAN # 2.78 (1.4-6.5); GRAN % 50.6 % (50.0-68.0); HEMATOCRIT 37.1 % (36.0-48.0); LYMPH # 2.1 (1.2-3.4); LYMPH % 37.5 % (22.0-35.0); MEAN CELL VOLUME 101.9 fL (80.0-105.0); MEAN CORPUSCULAR HEMOGLOBIN 34.3 pg (25.0-35.0); MEAN CORPUSCULAR HGB CONC 33.7 g/dl (31.0-37.0); MONO # 0.5 (0.1-0.6); MONO % 9.7 % (1.0-6.0); PLATELET COUNT 266 10^3/uL (120.0-450.0); RED CELL DISTRIBUTION WIDTH 12.8 % (11.5-14.5); WHITE BLOOD COUNT 5.5 10^3/ul (4.5-11.0)
--- NOTE | 2016-11-18 12:24 | CP.PCM.PN ---
<Nelda Quiroz - Last Filed: 11/18/16 19:38> Subjective - Date & Time of Evaluation Date of Evaluation: 11/18/16 Time of Evaluation: 09:40 - Subjective Subjective: Medicine progress note for Dr Carnes and Dr Villanueva. Patient seen and examined at bedside. Patient denies cp sob, headache, abdominal pain. Patient c/o constipation. Objective - Vital Signs/Intake and Output Vital Signs (last 24 hours): Temp Pulse Resp BP Pulse Ox 97.7 F 70 20 121/69 11/18/16 07:19 11/18/16 07:19 11/18/16 07:19 11/18/16 07:19 - Medications Medications: Current Medications Acetaminophen (Tylenol 325mg Tab) 650 mg PO Q4H PRN PRN Reason: Pain, Mild (1-3) Al Hydrox/Mg Hydrox/Simethicone (Maalox Plus 30 Ml) 30 ml PO DAILY PRN PRN Reason: Upset Stomach Aspirin (Aspirin Chewable) 81 mg PO DAILY [facility] Last Admin: 11/18/16 08:48 Dose: 81 mg Docusate Sodium (Colace) 100 mg PO BID [facility] Last Admin: 11/18/16 08:48 Dose: 100 mg Famotidine (Pepcid) 40 mg PO HS [facility] Last Admin: 11/17/16 21:23 Dose: 40 mg Hydrochlorothiazide (Microzide) 12.5 mg PO DAILY [facility] Last Admin: 11/18/16 08:48 Dose: 12.5 mg Lorazepam (Ativan) 0.5 mg PO TID PRN; Protocol PRN Reason: Anxiety Last Admin: 11/18/16 03:24 Dose: 0.5 mg Losartan Potassium (Cozaar) 100 mg PO DAILY [facility] Last Admin: 11/18/16 08:48 Dose: 100 mg Magnesium Hydroxide (Milk Of Magnesia) 30 ml PO DAILY PRN PRN Reason: Constipation Nicotine (Nicoderm Cq) 1 patch TD DAILY [facility] Last Admin: 11/18/16 08:48 Dose: 1 patch Polyethylene Glycol (Miralax) 17 gm PO DAILY [facility] Last Admin: 11/18/16 08:49 Dose: 17 gm Quetiapine Fumarate (Seroquel) 200 mg PO [facility] Tizanidine HCl (Zanaflex) 5 mg PO DAILY [facility] Last Admin: 11/18/16 08:39 Dose: 5 mg Zaleplon (Sonata) 5 mg PO HS PRN PRN Reason: Insomnia Ziprasidone (Geodon Cap) 20 mg PO Q8H PRN; Protocol PRN Reason: Agitation - Labs Labs: 11/18/16 07:00 11/18/16 07:00 - Constitutional Appears: No Acute Distress - Head Exam Head Exam: ATRAUMATIC, NORMAL INSPECTION, NORMOCEPHALIC - Eye Exam Eye Exam: Normal appearance, PERRL. absent: Scleral icterus - ENT Exam ENT Exam: Mucous Membranes Moist - Neck Exam Neck Exam: Normal Inspection - Respiratory Exam Respiratory Exam: Clear to Ausculation Bilateral, NORMAL BREATHING PATTERN. absent: Rales, Rhonchi, Wheezes, Respiratory Distress, Stridor - Cardiovascular Exam Cardiovascular Exam: REGULAR RHYTHM, RRR, +S1, +S2. absent: Murmur - GI/Abdominal Exam GI & Abdominal Exam: Soft, Normal Bowel Sounds. absent: Distended, Firm, Guarding, Rigid, Tenderness - Extremities Exam Extremities Exam: Normal Inspection - Back Exam Back Exam: NORMAL INSPECTION - Neurological Exam Neurological Exam: Alert, Awake, Oriented x3 - Psychiatric Exam Psychiatric exam: Normal Affect, Normal Mood. absent: Suicidal Ideation - Skin Skin Exam: Dry, Intact, Normal Color, Warm Assessment and Plan - Assessment and Plan (Free Text) Assessment: Patient is a 61 y/o with pmh of DM, HTN, Gastric bypass, and OA brought in by family secondary to dilusional behavior and hallucination. Following patient for management of htn and DM. Plan: 1) constipation- continue miralax, and colace. 2) NIDDM2 - controlled - HGBA1C 5.4 - Hold janumet 3) HTN - Will continue losartan and hctz 4) Lumbar spine OA - will continue tizanidine. - tylenol prn. 6) Active tobacco use - Nicotine patch. 7) mental status- management as per psych. 7) DVT/GI prophylaxis: heparin sc and pepcid Patient seen, examined, case discussed with Dr Carnes. <Garth Carnes - Last Filed: 12/04/16 19:03> Objective - Vital Signs/Intake and Output Vital Signs (last 24 hours): Temp Pulse Resp BP Pulse Ox 97.6 F 71 20 153/84 H 11/22/16 09:39 11/22/16 16:12 11/22/16 09:39 11/22/16 16:12 - Labs Labs: 11/21/16 07:30 11/21/16 07:30 Attending/Attestation - Attestation I have personally seen and examined this patient.: Yes I have fully participated in the care of the patient.: Yes I have reviewed all pertinent clinical information, including history, physical exam and plan: Yes Notes (Text): 12/04/16 19:03 Medical record note made by the resident after discussion with my direction and input after the patient was personally seen and examined by me. I have reviewed the chart and agree that the record accurately reflects by personal performance of the history, physical exam, data review, and medical decision-making, in the course for the patient. I have also personally directed the plan of care.
--- NOTE | 2016-11-18 15:56 | PCM.PYCHPN ---
Psychiatric Progress Note - Psychiatric Progress Note Patient seen today, length of contact: 30 minutes Patient Chief Complaint: "I feel better, I had a lot of things on my plate, I think my brain was not working properly" Problems Identified/Issues Discussed: Suicide/ homicide prevention, past psychiatric h/o, current psychiatric symptoms , medical problems, risk/benefits and alternatives of medications, medications compliance, coping strategies, substance abuse h/o, relapse prevention, importance of follow up with psychiatrist and therapist, discharge plan. Medical Problems: DM, HTN, Gastric bypass, and OA Diagnostic Results: 11/18/16 07:00 11/18/16 07:00 Lab Results 11/18/16 07:00: WBC 5.5, RBC 3.64, Hgb 12.5, Hct 37.1, MCV 101.9, MCH 34.3, MCHC 33.7, RDW 12.8, Plt Count 266, MPV 9.0, Gran % 50.6, Lymph % (Auto) 37.5 H , [place] % (Auto) 9.7 H, Eos % (Auto) 1.8, Baso % (Auto) 0.4, Gran # 2.78, Lymph # 2.1, [place] # 0.5, Eos # 0.1, Baso # 0.02 11/18/16 07:00: Sodium 137, Potassium 4.4, Chloride 100, Carbon Dioxide 29, Anion Gap 12, BUN 27 H, Creatinine 0.8, Est GFR ( Amer) > 60, Est GFR ( Non-Af Amer) > 60, Random Glucose 117 H, Calcium 9.2, Triglycerides 90, Cholesterol 141, LDL Cholesterol Direct 53, HDL Cholesterol 73 H Patient underwent medical work up which was normal, including normal CT head, tsh, vitamin b12, folate. Patient also had lyme titer and vdrl which are pending. DSM 5 Symptoms Update: shortly pt is 61yo female with not known previous psych history, pt denied, denied suicidal attempts, denied ever being admitted to the psych unit before, was transferred from the medical floor for evaluation and stabilization of psychotic symptoms. Pt presented to be delusional, had impression that Pain specialist and PT are involved into some secret organization, people are monitoring her, some microphones were inserted in the apartment where she lives , pt also was hearing things, had delusional perceptions. pt was transferred to the psych unit the day before yesterday. pt was started on seroquel, tolerated well, no side effects observed or reported. pt was seen today with her son for the family meeting. pt obviously has some improvement with her symptoms. this wrier educated pt and her son about potential dx delirium or brief psychotic episode. educated about tx plan and potential d/c plan, pt and her son were appreciated. pt refusing to give her name during the tx groups due to paranoia. pt was seen by medical team. Impression: brief psychotic disorder r/o delirium (pt was not sleeping for a week, pt got a steroid shot last week in her back, she was trying to quit smoking as well) r/o delusional disorder Medication Change: Yes (Seroquel increased) Medical Record Reviewed: Yes Consults ordered or reviewed: medical consultation appreciated See consultation note for more detailed information Mental Status Examination - Cognitive Function Orientation: Person Memory: Impaired Attention: Poor Concentration: Poor Association: Loose Fund of Knowledge: WNL - Mood Mood: Depressed, Anxious - Affect Affect: Constricted - Speech Speech: Appropriate - Formal Thought Process Formal Thought Process: Hallucinations (some improvement), Delusions (some improvement), Paranoia, Loosening of associations (some improvement), Circumstantial - Suicidal Ideation Suicidal Ideation: No - Homicidal Ideation Homicidal Ideation: No Goal/Treatment Plan - Goal/Treatment Plan Need for Continued Stay: Remain at risks for inpatient hospitalization, Severe depression anxiety, Discharge may exacerbated symptoms, Severe functional impairment Progress Toward Problem(s) and Goals/Treatment Plan: milieu, structure, supportive therapy Seroquel will be increased to 200 mg at the nighttime for psychosis and mood stabilization Trazodone as needed for insomnia Ativan as needed for anxiety medical follow up 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
[2016-11-18] MEDS ORDERED: POLYETHYLENE GLYCOL 3350 17 GM/Dose PACKET PO ONE (21:48)
[2016-11-19 07:59] LABS: ADD MANUAL DIFF? NO
[2016-11-19 08:02] LABS: BASO # 0.02 K/mm3 (0.0-2.0); BASO % 0.4 % (0.0-3.0); EOS # 0.1 (0.0-0.7); EOS % 1.3 % (1.5-5.0); GRAN # 2.68 (1.4-6.5); GRAN % 51.5 % (50.0-68.0); HEMATOCRIT 37.3 % (36.0-48.0); LYMPH # 2.1 (1.2-3.4); LYMPH % 39.3 % (22.0-35.0); MEAN CELL VOLUME 101.1 fL (80.0-105.0); MEAN CORPUSCULAR HEMOGLOBIN 34.1 pg (25.0-35.0); MEAN CORPUSCULAR HGB CONC 33.8 g/dl (31.0-37.0); MONO # 0.4 (0.1-0.6); MONO % 7.5 % (1.0-6.0); PLATELET COUNT 229 10^3/uL (120.0-450.0); RED CELL DISTRIBUTION WIDTH 12.7 % (11.5-14.5); WHITE BLOOD COUNT 5.2 10^3/ul (4.5-11.0)
[2016-11-19 08:35] LABS: BLOOD UREA NITROGEN 32 mg/dL (7-21); CALCIUM 9.2 mg/dL (8.4-10.5); CARBON DIOXIDE 23 mmol/L (21-33); CHLORIDE 106 mmol/L (98-107); GFR AFRICAN-AMERICAN > 60; GLUCOSE,RANDOM 86 mg/dL (70-110); POTASSIUM 4.5 mmol/L (3.6-5.0); SODIUM 136 mmol/L (132-148)
--- NOTE | 2016-11-19 08:37 | PCM.PYCHPN ---
Psychiatric Progress Note - Psychiatric Progress Note Patient seen today, length of contact: 25 minutes Patient Chief Complaint: "okay" Problems Identified/Issues Discussed: I reviewed assessment and recent notes. Patient was interviewed at bedside. She appears fairly groomed and superficially cooperative with my questioning. Indicates that she is feeling "okay". Affect is a little anxious and thought process is a little slowed and circumstantial. Reports her sleep was restless. Denies any other new issues and has been tolerating medications. Patient continues to deny hallucinations and paranoid delusions were not elicited during this initial interview. Responses are fairly relevant though brief. There were no behavioral issues overnight. Diagnostic Results: brief psychotic disorder r/o delirium (pt was not sleeping for a week, pt got a steroid shot last week in her back, she was trying to quit smoking as well) r/o delusional disorder Medication Change: No ( ) Medical Record Reviewed: Yes (notes, vitals, reports, labs) Mental Status Examination - Cognitive Function Orientation: Person Memory: Impaired Attention: Poor Concentration: Poor Association: Loose Fund of Knowledge: WNL - Mood Mood: Depressed ("Okay"), Anxious - Affect Affect: Constricted - Speech Speech: Appropriate - Formal Thought Process Formal Thought Process: Hallucinations (some improvement, denies today), Delusions (not elicited today), Paranoia, Loosening of associations (some improvement), Circumstantial - Suicidal Ideation Suicidal Ideation: No - Homicidal Ideation Homicidal Ideation: No Goal/Treatment Plan - Goal/Treatment Plan Need for Continued Stay: Remain at risks for inpatient hospitalization, Severe depression anxiety, Discharge may exacerbated symptoms, Severe functional impairment Progress Toward Problem(s) and Goals/Treatment Plan: * c/w current tx and plan * No new weekend labs * Vitals reviewed and noted below: Selected Entries 11/18/16 11/18/16 07:19 16:43 Temperature 97.7 F Pulse Rate 70 80 Respiratory 20 Rate Blood Pressure 121/69 153/77 H Estimated Date of D/C: 11/22/16 (we will monitor closely)
[2016-11-19] MEDS: POLYETHYLENE GLYCOL 3350 17 GM/Dose PACKET PO SCH (08:54)
--- NOTE | 2016-11-19 14:09 | PN ---
DATE: 11/19/[address] Villanueva who is off this weekend. I saw her in her room on the psychiatric floor, resting comfortably in bed. MEDICATIONS: She is on aspirin, Ativan, Colace, Cozaar, Geodon, Maalox, Microzide, milk of magnesia, MiraLax, Nicoderm patch, Pepcid, Seroquel, Sonata, Tylenol, Zanaflex. VITAL SIGNS: 98.4 temp, 75 pulse, 118/73 blood pressure, 20 respiratory rate. She is telling me that she is quite constipated, but she is feeling better emotionally. LABORATORY DATA: She has a 5.2 white count 12.6, 37.3 hematocrit with 229 platelets. Sodium 136, po tassium 4.5, BUN 32, creatinine 0.8, GFR is greater than 60, sugar is 86, calcium is 9.2. RPR is non reactive. She is being seen by psychiatry. She has hallucinations, delusions, paranoia, and now a bit constipa harpreet. I will give her Dulcolax suppositories, she agrees for that. Hopefully she will have some succ ess, otherwise we might have to go to a Fleets enema. Will keep an eye on her. Timothy Villanueva DO cc: [id number] TT: 11/19/2016 14:08:28 Confirmation # [id number] Dictation # [id number] ryan
--- NOTE | 2016-11-20 09:12 | PCM.PYCHPN ---
Psychiatric Progress Note - Psychiatric Progress Note Patient seen today, length of contact: 25 minutes Patient Chief Complaint: "okay" Problems Identified/Issues Discussed: I reviewed recent notes and patient was interviewed at bedside. She appears fairly groomed and superficially cooperative with my questioning. Indicates that she is feeling "dramatically improved". Affect is a little anxious and thought process is a little odd and circumstantial. Reports her sleep was restless. She refused seroquel last night because she believed it made her "wobbly and disoriented". These symptoms apparently improved after she stopped taking this medication. Patient denies any other new issues and has been tolerating medications, . Patient continues to deny hallucinations. Paranoid delusions were not elicited over the weekend. Staff notes indicate that patient appears and brighter and more social on the unit. There were no behavior issues over the weekend. Diagnostic Results: brief psychotic disorder r/o delirium (pt was not sleeping for a week, pt got a steroid shot last week in her back, she was trying to quit smoking as well) r/o delusional disorder Medication Change: Yes (increase sonata, d/c seroquel) Medical Record Reviewed: Yes (notes, vitals, reports, labs) Mental Status Examination - Cognitive Function Orientation: Person Memory: Impaired Attention: Poor Concentration: Poor Association: Loose Fund of Knowledge: WNL - Mood Mood: Depressed ("dramatically better"), Anxious - Affect Affect: Constricted - Speech Speech: Appropriate - Formal Thought Process Formal Thought Process: Hallucinations (some improvement, denies today), Delusions (not elicited today), Paranoia, Loosening of associations (some improvement), Circumstantial - Suicidal Ideation Suicidal Ideation: No - Homicidal Ideation Homicidal Ideation: No Goal/Treatment Plan - Goal/Treatment Plan Need for Continued Stay: Remain at risks for inpatient hospitalization, Severe depression anxiety, Discharge may exacerbated symptoms, Severe functional impairment Progress Toward Problem(s) and Goals/Treatment Plan: * c/w current tx and plan * Appreciate f/u by Dr. Villanueva 11/19/16~starting dulcolax suppositories * Vitals reviewed and noted below: Selected Entries 11/19/16 11/20/16 09:02 06:00 Temperature 98.4 F 98.2 F Pulse Rate 75 75 Respiratory 20 16 Rate Blood Pressure 118/73 157/92 H * Increased sonata to 10 mg HS prn for insomnia, discontinued seroquel as patient indicates she will no longer take this medication due to s/e * New weekend labs noted below: Laboratory Results - last 24 hr 11/19/16 11/19/16 07:00 07:00 WBC 5.2 RBC 3.69 Hgb 12.6 Hct 37.3 MCV 101.1 MCH 34.1 MCHC 33.8 RDW 12.7 Plt Count 229 MPV 9.0 Gran % 51.5 Lymph % (Auto) 39.3 H [place] % (Auto) 7.5 H Eos % (Auto) 1.3 L Baso % (Auto) 0.4 Gran # 2.68 Lymph # 2.1 [place] # 0.4 Eos # 0.1 Baso # 0.02 Sodium 136 Potassium 4.5 Chloride 106 Carbon Dioxide 23 Anion Gap 12 BUN 32 H Creatinine 0.8 Est GFR ( Amer) > 60 Est GFR (Non-Af Amer) > 60 Random Glucose 86 Calcium 9.2 Estimated Date of D/C: 11/22/16 (we will monitor closely)
[2016-11-20] MEDS: POLYETHYLENE GLYCOL 3350 17 GM/Dose PACKET PO SCH (11:44)
--- NOTE | 2016-11-20 11:50 | PN ---
DATE: 11/20/2016 I saw the patient in the psychiatric floor for Dr. Villanueva, who is off this weekend. She was having hallucinations and delusions. She is doing a little bit better today, more alert, more cooperative, more appropriate. She is telling me she is having pain and she used to take tramadol. I will get h er some tramadol. She is currently on aspirin, Ativan, Colace, Cozaar, Dulcolax, Geodon, Maalox, Microzide, milk of mag nesia, MiraLax, Nicoderm, Pepcid, Sonata, Tylenol, Zanaflex and I added Ultram. PHYSICAL EXAMINATION: VITAL SIGNS: Temp 98.2, 75 pulse, 157/92 blood pressure, 118/73 blood pressure. If the blood pressu re continues to be high, I will add blood pressure medications to her. She is on Cozaar. I might ad d Norvasc depending on what happens with the blood pressure. HEENT: Head is atraumatic, normocephalic. HEART: Regular rate. LUNGS: Decreased breath sounds, but clear. ABDOMEN: Soft, obese, nontender. EXTREMITIES: No edema. She has a 5.2 white count, 12.6 hemoglobin, 37.3 hematocrit with 229 platelets. Sodium 136, pot[place] m 4.5, BUN 32, creatinine 0.8, GFR is greater than 60, sugar is 86, calcium is 9.2. RPR is nonreacti ve. She is being seen by psychiatry. She has multiple issues, hallucinations, delusions, paranoia, somew hat improving, also with hypertension, pain, constipation. We will continue with aggressive treatmen t and care. We will check her labs tomorrow. Timothy Villanueva DO cc: [id number] TT: 11/20/2016 11:49:57 Confirmation # [id number] Dictation # [id number] en
[2016-11-21 07:43] VITALS: RESP 20
[2016-11-21 07:46] LABS: HEMATOCRIT 37.2 % (36.0-48.0); MEAN CELL VOLUME 101.9 fL (80.0-105.0); MEAN CORPUSCULAR HEMOGLOBIN 34.2 pg (25.0-35.0); MEAN CORPUSCULAR HGB CONC 33.6 g/dl (31.0-37.0); MEAN PLATELET VOLUME 8.6 fl (7.0-11.0); RED CELL DISTRIBUTION WIDTH 12.8 % (11.5-14.5); WHITE BLOOD COUNT 5.2 10^3/ul (4.5-11.0)
[2016-11-21 07:57] LABS: ALB/GLOB RATIO 1.3 (1.1-1.8); ALKALINE PHOSPHATASE 60 U/L (38-133); ALT/SGPT 59 U/L (7-56); AST/SGOT 36 U/L (15-39); BILIRUBIN,TOTAL 0.9 mg/dL (0.2-1.3); BLOOD UREA NITROGEN 21 mg/dL (7-21); CALCIUM 9.1 mg/dL (8.4-10.5); CARBON DIOXIDE 28 mmol/L (21-33); CHLORIDE 102 mmol/L (95-110); GFR AFRICAN-AMERICAN > 60; GLUCOSE,RANDOM 105 mg/dL (70-110); POTASSIUM 4.3 mmol/L (3.6-5.0); SODIUM 138 mmol/L (132-148); TOTAL PROTEIN 7.7 g/dL (5.8-8.3)
[2016-11-21] MEDS: POLYETHYLENE GLYCOL 3350 17 GM/Dose PACKET PO SCH (09:01)
--- NOTE | 2016-11-21 15:09 | CP.PCM.PN ---
<Nelda Quiroz - Last Filed: 11/21/16 16:24> Subjective - Date & Time of Evaluation Date of Evaluation: 11/21/16 Time of Evaluation: 09:40 - Subjective Subjective: Medicine progress note for Dr Carnes and Dr Villanueva. Patient appears better, denies hallucinations. Patient denies cp, sob, headache , dizziness, n.v.d. Objective - Vital Signs/Intake and Output Vital Signs (last 24 hours): Temp Pulse Resp BP Pulse Ox 97.9 F 81 20 151/104 H 11/21/16 07:42 11/21/16 07:42 11/21/16 07:42 11/21/16 07:42 - Medications Medications: Current Medications Acetaminophen (Tylenol 325mg Tab) 650 mg PO Q4H PRN PRN Reason: Pain, Mild (1-3) Last Admin: 11/20/16 15:42 Dose: 650 mg Al Hydrox/Mg Hydrox/Simethicone (Maalox Plus 30 Ml) 30 ml PO DAILY PRN PRN Reason: Upset Stomach Aspirin (Aspirin Chewable) 81 mg PO DAILY [facility] Last Admin: 11/21/16 09:01 Dose: 81 mg Docusate Sodium (Colace) 100 mg PO BID [facility] Last Admin: 11/21/16 09:01 Dose: 100 mg Famotidine (Pepcid) 40 mg PO HS [facility] Last Admin: 11/20/16 21:39 Dose: 40 mg Hydrochlorothiazide (Microzide) 12.5 mg PO DAILY [facility] Last Admin: 11/21/16 09:01 Dose: 12.5 mg Lorazepam (Ativan) 0.5 mg PO TID PRN; Protocol PRN Reason: Anxiety Last Admin: 11/21/16 00:28 Dose: 0.5 mg Losartan Potassium (Cozaar) 100 mg PO DAILY [facility] Last Admin: 11/21/16 09:00 Dose: 100 mg Magnesium Hydroxide (Milk Of Magnesia) 30 ml PO DAILY PRN PRN Reason: Constipation Nicotine (Nicoderm Cq) 1 patch TD DAILY [facility] Last Admin: 11/21/16 09:02 Dose: 1 patch Polyethylene Glycol (Miralax) 17 gm PO DAILY [facility] Last Admin: 11/21/16 09:01 Dose: 17 gm Quetiapine Fumarate (Seroquel) 50 mg PO [facility] PRN Reason: Protocol Tizanidine HCl (Zanaflex) 5 mg PO DAILY [facility] Last Admin: 11/21/16 09:00 Dose: 5 mg Tramadol HCl (Ultram) 50 mg PO Q6H PRN PRN Reason: Pain, severe (8-10) Last Admin: 11/21/16 13:24 Dose: 50 mg Zaleplon (Sonata) 10 mg PO HS PRN PRN Reason: Insomnia Last Admin: 11/20/16 21:39 Dose: 10 mg Ziprasidone (Geodon Cap) 20 mg PO Q8H PRN; Protocol PRN Reason: Agitation - Labs Labs: 11/21/16 07:30 11/21/16 07:30 - Constitutional Appears: No Acute Distress - Head Exam Head Exam: ATRAUMATIC, NORMAL INSPECTION, NORMOCEPHALIC - Eye Exam Eye Exam: EOMI, Normal appearance, PERRL. absent: Scleral icterus - ENT Exam ENT Exam: Mucous Membranes Moist - Neck Exam Neck Exam: Normal Inspection - Respiratory Exam Respiratory Exam: Clear to Ausculation Bilateral, NORMAL BREATHING PATTERN. absent: Rales, Rhonchi, Wheezes, Respiratory Distress, Stridor - Cardiovascular Exam Cardiovascular Exam: REGULAR RHYTHM, +S1, +S2 - GI/Abdominal Exam GI & Abdominal Exam: Soft, Normal Bowel Sounds. absent: Distended, Firm, Guarding, Rigid, Tenderness - Extremities Exam Extremities Exam: Normal Inspection - Back Exam Back Exam: NORMAL INSPECTION - Neurological Exam Neurological Exam: Alert, Awake, Oriented x3 - Psychiatric Exam Psychiatric exam: Normal Affect, Normal Mood - Skin Skin Exam: Dry, Intact, Normal Color, Warm Assessment and Plan - Assessment and Plan (Free Text) Assessment: Patient is a 61 y/o with pmh of DM, HTN, Gastric bypass, and OA brought in by family secondary to dilusional behavior and hallucination. Following patient for management of htn and DM. Plan: 1) constipation- continue miralax, and colace. 2) NIDDM2 - controlled - HGBA1C 5.4 - Hold janumet 3) HTN - Will continue losartan and hctz - will continue to monitor. 4) Lumbar spine OA - will continue tizanidine. - tylenol prn. - ultram prn 6) Active tobacco use - Nicotine patch. 7) mental status- management as per psych. 7) DVT/GI prophylaxis: heparin sc and pepcid Patient seen, examined, case discussed with Dr Carnes. <Garth Carnes - Last Filed: 12/04/16 19:08> Objective - Vital Signs/Intake and Output Vital Signs (last 24 hours): Temp Pulse Resp BP Pulse Ox 97.6 F 71 20 153/84 H 11/22/16 09:39 11/22/16 16:12 11/22/16 09:39 11/22/16 16:12 - Labs Labs: 11/21/16 07:30 11/21/16 07:30 Attending/Attestation - Attestation I have personally seen and examined this patient.: Yes I have fully participated in the care of the patient.: Yes I have reviewed all pertinent clinical information, including history, physical exam and plan: Yes Notes (Text): 12/04/16 19:08 Medical record note made by the resident after discussion with my direction and input after the patient was personally seen and examined by me. I have reviewed the chart and agree that the record accurately reflects by personal performance of the history, physical exam, data review, and medical decision-making, in the course for the patient. I have also personally directed the plan of care.
--- NOTE | 2016-11-21 15:10 | PCM.PYCHPN ---
Psychiatric Progress Note - Psychiatric Progress Note Patient seen today, length of contact: 30 minutes Patient Chief Complaint: "I was feeling like a zombie" Problems Identified/Issues Discussed: Suicide/ homicide prevention, past psychiatric h/o, current psychiatric symptoms , medical problems, risk/benefits and alternatives of medications, medications compliance, coping strategies, substance abuse h/o, relapse prevention, importance of follow up with psychiatrist and therapist, discharge plan. Medical Problems: DM, HTN, Gastric bypass, and OA Diagnostic Results: 11/18/16 07:00 11/18/16 07:00 Lab Results 11/18/16 07:00: WBC 5.5, RBC 3.64, Hgb 12.5, Hct 37.1, MCV 101.9, MCH 34.3, MCHC 33.7, RDW 12.8, Plt Count 266, MPV 9.0, Gran % 50.6, Lymph % (Auto) 37.5 H , Rooks % (Auto) 9.7 H, Eos % (Auto) 1.8, Baso % (Auto) 0.4, Gran # 2.78, Lymph # 2.1, Rooks # 0.5, Eos # 0.1, Baso # 0.02 11/18/16 07:00: Sodium 137, Potassium 4.4, Chloride 100, Carbon Dioxide 29, Anion Gap 12, BUN 27 H, Creatinine 0.8, Est GFR ( Amer) > 60, Est GFR ( Non-Af Amer) > 60, Random Glucose 117 H, Calcium 9.2, Triglycerides 90, Cholesterol 141, LDL Cholesterol Direct 53, HDL Cholesterol 73 H Patient underwent medical work up which was normal, including normal CT head, tsh, vitamin b12, folate. Patient also had lyme titer and vdrl which are pending. Temp Pulse Resp BP Pulse Ox 97.9 F 81 20 151/104 H 11/21/16 07:42 11/21/16 07:42 11/21/16 07:42 11/21/16 07:42 DSM 5 Symptoms Update: shortly pt is 61yo female with not known previous psych history, pt denied, denied suicidal attempts, denied ever being admitted to the psych unit before, was transferred from the medical floor for evaluation and stabilization of psychotic symptoms. Pt presented to be delusional, had impression that Pain specialist and PT are involved into some secret organization, people are monitoring her, some microphones were inserted in the apartment where she lives , pt also was hearing things, had delusional perceptions. over the weekend Seroquel was discontinued, patient said that she was feeling like "zombie", Dr. Barboza discontinue Seroquel, patient presented to be delusional, paranoid, this specification writer educated patient about the importance to be on medications, patient is willing to take it but lower dose. pt son will visit pt tomorrow, will d/w son. pt obviously has some improvement with her symptoms. this wrier educated pt and her son about potential dx delirium or brief psychotic episode. educated about tx plan and potential d/c plan, pt and her son were appreciated. case was discussed with Dr. Macdonald today, primary care physician, as per primary care physician patient is improving. Impression: brief psychotic disorder r/o delirium (pt was not sleeping for a week, pt got a steroid shot last week in her back, she was trying to quit smoking as well) r/o delusional disorder Medication Change: Yes (Seroquel will be resumed 50 mg at the nighttime) Medical Record Reviewed: Yes (notes, vitals, reports, labs) Consults ordered or reviewed: medical consultation appreciated See consultation note for more detailed information Mental Status Examination - Cognitive Function Orientation: Person Memory: Impaired Attention: Poor (some improvement) Concentration: Poor (some improvement) Association: Loose Fund of Knowledge: WNL - Mood Mood: Depressed ("dramatically better"), Anxious - Affect Affect: Constricted - Speech Speech: Appropriate - Formal Thought Process Formal Thought Process: Hallucinations (some improvement, denies today), Delusions (patient still feels her primary care physician and pain management are looking at her in certain way), Paranoia, Loosening of associations (some improvement), Circumstantial - Suicidal Ideation Suicidal Ideation: No - Homicidal Ideation Homicidal Ideation: No Goal/Treatment Plan - Goal/Treatment Plan Need for Continued Stay: Remain at risks for inpatient hospitalization, Severe depression anxiety, Discharge may exacerbated symptoms, Severe functional impairment Progress Toward Problem(s) and Goals/Treatment Plan: milieu, structure, supportive therapy Seroquel will be resumed 50 mg at the nighttime for psychosis and mood stabilization patient was started on Sonata for insomnia Ativan as needed for anxiety medical follow up appreciated daycare worker evaluation We'll monitor closely Estimated Date of D/C: 11/22/16 (we will monitor closely)
[2016-11-22 06:52] VITALS: TEMP 97.6
[2016-11-22] MEDS: POLYETHYLENE GLYCOL 3350 17 GM/Dose PACKET PO SCH (09:05)
--- NOTE | 2016-11-22 09:44 | CP.PCM.PN ---
<Nelda Quiroz - Last Filed: 11/22/16 13:52> Subjective - Date & Time of Evaluation Date of Evaluation: 11/22/16 Time of Evaluation: 08:20 - Subjective Subjective: Medicine progress note for Dr Villanueva and Dr Carnes service. Patient with no medical complaints. Patient denies cp, sob, n/v/. Patient c/o back pain. Objective - Vital Signs/Intake and Output Vital Signs (last 24 hours): Temp Pulse Resp BP Pulse Ox 97.6 F 68 20 116/65 116 H 11/22/16 09:39 11/22/16 09:39 11/22/16 09:39 11/22/16 06:51 11/22/16 09:39 - Medications Medications: Current Medications Acetaminophen (Tylenol 325mg Tab) 650 mg PO Q4H PRN PRN Reason: Pain, Mild (1-3) Last Admin: 11/21/16 18:56 Dose: 650 mg Al Hydrox/Mg Hydrox/Simethicone (Maalox Plus 30 Ml) 30 ml PO DAILY PRN PRN Reason: Upset Stomach Aspirin (Aspirin Chewable) 81 mg PO DAILY [facility] Last Admin: 11/22/16 09:32 Dose: Not Given Docusate Sodium (Colace) 100 mg PO BID [facility] Last Admin: 11/22/16 09:06 Dose: 100 mg Famotidine (Pepcid) 40 mg PO HS [facility] Last Admin: 11/21/16 23:12 Dose: 40 mg Hydrochlorothiazide (Microzide) 12.5 mg PO DAILY [facility] Last Admin: 11/22/16 09:06 Dose: 12.5 mg Lorazepam (Ativan) 0.5 mg PO TID PRN; Protocol PRN Reason: Anxiety Last Admin: 11/21/16 00:28 Dose: 0.5 mg Losartan Potassium (Cozaar) 100 mg PO DAILY [facility] Last Admin: 11/22/16 09:06 Dose: 100 mg Magnesium Hydroxide (Milk Of Magnesia) 30 ml PO DAILY PRN PRN Reason: Constipation Nicotine (Nicoderm Cq) 1 patch TD DAILY [facility] Last Admin: 11/22/16 09:05 Dose: 1 patch Polyethylene Glycol (Miralax) 17 gm PO DAILY [facility] Last Admin: 11/22/16 09:05 Dose: 17 gm Quetiapine Fumarate (Seroquel) 50 mg PO HS [facility] PRN Reason: Protocol Last Admin: 11/21/16 23:12 Dose: 50 mg Tizanidine HCl (Zanaflex) 5 mg PO DAILY [facility] Last Admin: 11/22/16 09:06 Dose: 5 mg Tramadol HCl (Ultram) 50 mg PO Q6H PRN PRN Reason: Pain, severe (8-10) Last Admin: 11/21/16 13:24 Dose: 50 mg Zaleplon (Sonata) 10 mg PO HS PRN PRN Reason: Insomnia Last Admin: 11/20/16 21:39 Dose: 10 mg Ziprasidone (Geodon Cap) 20 mg PO Q8H PRN; Protocol PRN Reason: Agitation - Labs Labs: 11/21/16 07:30 11/21/16 07:30 - Constitutional Appears: No Acute Distress - Head Exam Head Exam: ATRAUMATIC, NORMAL INSPECTION, NORMOCEPHALIC - Eye Exam Eye Exam: EOMI, Normal appearance, PERRL. absent: Scleral icterus - ENT Exam ENT Exam: Mucous Membranes Moist - Neck Exam Neck Exam: Normal Inspection - Respiratory Exam Respiratory Exam: Clear to Ausculation Bilateral, NORMAL BREATHING PATTERN. absent: Rales, Rhonchi, Wheezes, Respiratory Distress, Stridor - Cardiovascular Exam Cardiovascular Exam: REGULAR RHYTHM, RRR, +S1, +S2 - GI/Abdominal Exam GI & Abdominal Exam: Soft, Normal Bowel Sounds. absent: Distended, Firm, Guarding, Rigid, Tenderness - Extremities Exam Extremities Exam: Normal Inspection - Back Exam Back Exam: NORMAL INSPECTION - Neurological Exam Neurological Exam: Alert, Awake, Oriented x3 - Psychiatric Exam Psychiatric exam: Normal Affect, Normal Mood - Skin Skin Exam: Dry, Normal Color, Warm Assessment and Plan - Assessment and Plan (Free Text) Assessment: Patient is a 61 y/o with pmh of DM, HTN, Gastric bypass, and OA brought in by family secondary to delusional behavior and hallucination. Following patient for management of htn and DM. Plan: 1) constipation- continue miralax, and colace. 2) NIDDM2 - controlled - HGBA1C 5.4 - Hold janumet 3) HTN - Will continue losartan and hctz - will continue to monitor. 4) Lumbar spine OA - will continue tizanidine. - tylenol prn. - ultram prn 6) Active tobacco use - Nicotine patch. 7) mental status- management as per psych. 7) DVT/GI prophylaxis: heparin sc and pepcid Patient seen, examined, case discussed with Dr Carnes. <Garth Carnes - Last Filed: 12/14/16 14:59> Objective - Vital Signs/Intake and Output Vital Signs (last 24 hours): Temp Pulse Resp BP Pulse Ox 97.6 F 71 20 153/84 H 11/22/16 09:39 11/22/16 16:12 11/22/16 09:39 11/22/16 16:12 - Labs Labs: 11/21/16 07:30 11/21/16 07:30 Attending/Attestation - Attestation I have personally seen and examined this patient.: Yes I have fully participated in the care of the patient.: Yes I have reviewed all pertinent clinical information, including history, physical exam and plan: Yes Notes (Text): 12/14/16 14:59 Medical record note made by the resident after discussion with my direction and input after the patient was personally seen and examined by me. I have reviewed the chart and agree that the record accurately reflects by personal performance of the history, physical exam, data review, and medical decision-making, in the course for the patient. I have also personally directed the plan of care.
[2016-11-22 16:13] VITALS: BP 153/84; PULSE 71
--- NOTE | 2016-11-22 16:48 | PCM.PYCHDC ---
Mental Status Examination - Mental Status Examination Orientation: Person, Place, Situation, Time Memory: Intact Mood: Neutral Affect: Broad (and mood congruent) Speech: Appropriate Attention: WNL Concentration: WNL Association: WNL Fund of Knowledge: WNL Formal Thought Process: Delusions (patient is mildly paranoid but with much improvement) Description of patient's judgement and insight: Pt has improved insight into mental and medical illness, pt was compliant with medications and unit rules and regulations, pt was going to groups, was calm, cooperative, socially appropriate, no behavioral incidents, no agitation, no aggression. Psychotic Thoughts and Behaviors: Pt denied v/a/t hallucinations, denied paranoid ideations, pt does not appear to be psychotic, and thought process is goal directed. Suicidal Ideation: No Current Homicidal Ideation?: No Plan: pt adamantly denied thoughts of harming self or others denied intent or plan. Discharge Summary - Discharge Note Reason for Hospitalization: psychosis, visual, auditory hallucinations, paranoia Psychiatric History (includes Medical, Family, Personal Hx): denied Laboratory Data: 11/21/16 07:30 11/21/16 07:30 Lab Results 11/21/16 07:30: Sodium 138, Potassium 4.3, Chloride 102, Carbon Dioxide 28, Anion Gap 12, BUN 21, Creatinine 0.8, Est GFR ( Amer) > 60, Est GFR (Non- Af Amer) > 60, Random Glucose 105, Calcium 9.1, Total Bilirubin 0.9, AST 36, ALT 59 H, Alkaline Phosphatase 60, Total Protein 7.7, Albumin 4.3, Globulin 3.4 , Albumin/Globulin Ratio 1.3 11/21/16 07:30: WBC 5.2, RBC 3.65, Hgb 12.5, Hct 37.2, MCV 101.9, MCH 34.2, MCHC 33.6, RDW 12.8, Plt Count 269, MPV 8.6 11/19/16 07:00: Sodium 136, Potassium 4.5, Chloride 106, Carbon Dioxide 23, Anion Gap 12, BUN 32 H, Creatinine 0.8, Est GFR ( Amer) > 60, Est GFR ( Non-Af Amer) > 60, Random Glucose 86, Calcium 9.2 11/19/16 07:00: WBC 5.2, RBC 3.69, Hgb 12.6, Hct 37.3, MCV 101.1, MCH 34.1, MCHC 33.8, RDW 12.7, Plt Count 229, MPV 9.0, Gran % 51.5, Lymph % (Auto) 39.3 H , Ashe % (Auto) 7.5 H, Eos % (Auto) 1.3 L, Baso % (Auto) 0.4, Gran # 2.68, Lymph # 2.1, Ashe # 0.4, Eos # 0.1, Baso # 0.02 11/18/16 07:00: WBC 5.5, RBC 3.64, Hgb 12.5, Hct 37.1, MCV 101.9, MCH 34.3, MCHC 33.7, RDW 12.8, Plt Count 266, MPV 9.0, Gran % 50.6, Lymph % (Auto) 37.5 H , Ashe % (Auto) 9.7 H, Eos % (Auto) 1.8, Baso % (Auto) 0.4, Gran # 2.78, Lymph # 2.1, Ashe # 0.5, Eos # 0.1, Baso # 0.02 11/18/16 07:00: RPR Nonreactive 11/18/16 07:00: Sodium 137, Potassium 4.4, Chloride 100, Carbon Dioxide 29, Anion Gap 12, BUN 27 H, Creatinine 0.8, Est GFR ( Amer) > 60, Est GFR ( Non-Af Amer) > 60, Random Glucose 117 H, Calcium 9.2, Triglycerides 90, Cholesterol 141, LDL Cholesterol Direct 53, HDL Cholesterol 73 H Vital Signs Temp Pulse Resp BP 11/22/16 16:12 71 153/84 H 11/22/16 09:39 97.6 F 68 20 116/65 11/22/16 06:51 97.6 F 68 20 116/65 11/21/16 16:29 74 124/71 11/21/16 07:42 97.9 F 81 20 151/104 H 11/20/16 17:25 97.4 F L 17 L 64 H 138/65 11/20/16 06:00 98.2 F 75 16 157/92 H 11/19/16 09:02 98.4 F 75 20 118/73 11/18/16 16:43 80 153/77 H 11/18/16 07:19 97.7 F 70 20 121/69 11/17/16 16:00 85 97/56 L 11/16/16 20:34 22 11/16/16 20:14 98.3 F 77 139/72 Consultations:: List each consultation separately and include: 1. Reason for request. 2. Findings. 3. Follow-up Consultations: medical consultation appreciated See consultation note for more detailed information Summary of Hospital Course include:: 1. Description of specific treatment plan utilized for patients during their course of treatmen. 2. Summarize the time- course for resolution of acute symptoms and/or regressed behaviors. 3. Describe issues identified and worked on during hospitalization. 4. Describe medication utilized. 5. Describe medical problems identified and treated. 6. Reassessment of suicide risk Summary of Hospital Course: shortly pt is 61yo female with not known previous psych history, pt denied, denied suicidal attempts, denied ever being admitted to the psych unit before, was transferred from the medical floor for evaluation and stabilization of psychotic symptoms. Pt presented to be delusional, had impression that Pain specialist and PT are involved into some secret organization, people are monitoring her, some microphones were inserted in the apartment where she lives , pt also was hearing things, had delusional perceptions. as per this underwriter impression patient was in delirium stage due to steroid shots prior admission on the medical side, patient also was sleep deprived patient was trying to quit smoking at the same time delusional disorder cannot be excluded. this underwriter called (pain mng , left a message, awaiting for the call back). pt was transferred to the psych unit, pt was started on seroquel, but pt reported to feel like a zombie on increased dose of seroquel, that is why pt was resumed only 50mg hs. pt tolerated meds well, no side effects observed or reported, AIMS 0, no EPS. this underwriter had meeting with patient's son during the treatment team. As per son patient was improving, was appreciated,see notes for more detailed information pt obviously has improvement with her symptoms, was compliant with her medications, no side effects observed or reported, as per staff patient was calm , corporative, socially appropriate, no agitation, no aggression. Over the course of this hospitalization pt was attending groups, pt also had medication management, had therapeutic milieu. Overall pt improved significantly, pt's affect became brighter, pt was less depressed, has realistic future oriented plans, pt has residual paranoia feeling "I do not want to go back to the pain specialist, he did something wrong to my body", pts insight improved as well and soon pt deemed to be ready for discharge. At the time of the discharge pt denied been depressed, denied thoughts of harming self or others, denied psychotic symptoms, and pt does not appeared to be psychotic, denied been anxious, was considered to pose no threat to self or others, will be following up with outpatient psychiatrist and therapist, information about follow up appointment, time and address provided to the pt, it is patient responsibility to follow up with outpatient clinic, PMD as well as specialists (see SW note for more detailed information). In case pt will need to obtain results of studies pending at discharge pt was provided with contact information of Psychiatric Inpatient unit [phone] as well as Medical Record Department [phone]. Nicotine patch was offered pt was provided with prescriptions for all of medications (please see medication reconciliation form) Pt was educated about safety plan in case of worsening of symptoms or in case of suicidal or homicidal ideation call 911 or go to the nearest ER, also was educated to take meds as prescribed and stay away from drugs, pt verbalized understanding. - Diagnosis (1) Psychosis Current Visit: Yes Status: Acute (2) Brief psychotic disorder Current Visit: Yes Status: Acute (3) Delusional disorder Current Visit: Yes Status: Acute (4) Delirium Current Visit: Yes Status: Acute - Final Diagnosis (DSM 5) Condition upon Discharge: GOOD Disposition: HOME/ ROUTINE Follow-up Treatment Plan: milieu, structure, supportive therapy Seroquel will be resumed 50 mg at the nighttime for psychosis and mood stabilization patient was started on Sonata for insomnia Ativan as needed for anxiety medical follow up appreciated load out worker evaluation We'll monitor closely Prescriptions/Medication Reconciliation: Aspirin [Aspirin Chewable] 81 mg PO DAILY #14 Docusate [Colace] 100 mg PO BID #28 cap Famotidine [Pepcid] 40 mg PO HS #14 tab hydroCHLOROthiazide [Microzide] 12.5 mg PO DAILY #14 cap Losartan [Cozaar] 100 mg PO DAILY #14 tab Nicotine 7 mg/24 hr [Nicoderm CQ] 1 patch TD DAILY #14 patch Polyethylene Glycol 3350 [Miralax] 17 gm PO DAILY #14 packet QUEtiapine [Seroquel] 50 mg PO HS #14 tab tiZANidine [Zanaflex] 5 mg PO DAILY #14 - Smoking Cessation Smoking Cessation Medication prescribed: Yes - Antipsychotic Medications Pt discharged on 2 or more routine antipsychotic medications: No
== END 2016-11-22 16:55 | disposition home or self-care (01) | DRG 885 ==
LOC: PSYC 18:58
PROVIDERS: ADMIT Psychiatry & Neurology Psychiatry; ATTEND Psychiatry & Neurology Psychiatry
DX: F23 Brief psychotic disorder (principal); F22 Delusional disorders; E11.9 Type 2 diabetes mellitus without complications; I10 Essential (primary) hypertension; K59.00 Constipation, unspecified; M47.896 Other spondylosis, lumbar region; R41.0 Disorientation, unspecified; Z72.0 Tobacco use; Z98.84 Bariatric surgery status

== ENCOUNTER 2018-07-14 02:01 | Inpatient (IN) | payer BC ==
[2018-07-14 02:11] VITALS: BMI 37.1
[2018-07-14] MEDS ORDERED: Albuterol 0.083% Inhal Sol (2.5 mg/3 mL) UD INH STA (03:27)
--- NOTE | 2018-07-14 04:09 | ED PDOC ---
Arrival/HPI - General Chief Complaint: Cough, Cold, Congestion Time Seen by Provider: 07/14/18 02:40 Historian: Patient - History of Present Illness Narrative History of Present Illness (Text): 07/14/18 03:42 A 62 year old female presents to the emergency department with a complaint of 2 week duration productive cough and shortness of breath. Patient presents today from the [facility] department for worsening shortness of breath and cough. Patient reports being seen at a [facility] 2 weeks ago where she was given cough medication and an inhaler. As her symptoms progressed, she went for re- evaluation 2 days ago and was given Prednisone, but her symptoms worsened tonight prompting her to come to the emergency department for further evaluation. The patient denies fevers, chills, headache, dizziness, chest pain, abdominal pain, nausea, vomiting, diarrhea, back pain, neck pain, urinary/bowel changes, or any other complaint. Time/Duration: Other (2 weeks) Symptom Onset: Gradual Symptom Course: Worsening Activities at Onset: Rest, Light Context: Home Past Medical History - Provider Review Nursing Documentation Reviewed: Yes - Infectious Disease Hx of Infectious Diseases: None - Tetanus Immunization Tetanus Immunization: Unknown - Cardiac Hx Hypertension: Yes - Pulmonary Hx Respiratory Disorders: No - Neurological Hx Neurological Disorder: No - HEENT Hx HEENT Disorder: No - Renal Hx Renal Disorder: No - Endocrine/Metabolic Hx Endocrine Disorders: Yes Hx Diabetes Mellitus Type 2: Yes - Hematological/Oncological Hx Blood Disorders: No - Integumentary Hx Dermatological Disorder: No - Musculoskeletal/Rheumatological Hx Musculoskeletal Disorders: Yes Hx Back Pain: Yes Hx Falls: Yes Hx Herniated Disk: Yes Hx Osteoarthritis: Yes Hx Spinal Stenosis: Yes - Gastrointestinal Hx Gastrointestinal Disorders: Yes Hx Gall Bladder Disease: Yes Hx Gastroesophageal Reflux: Yes Other/Comment: Gastric bypass - Genitourinary/Gynecological Hx Genitourinary Disorders: Yes (ABN VAG BLEEDING) Other/Comment: Vaginal bleeding post menopause - Psychiatric Hx Anxiety: Yes Hx Depression: Yes (Slight after the passing of her father June 2016) Hx Hallucinations: Yes Hx Substance Use: No - Surgical History Hx Cholecystectomy: Yes Hx Dilation and Curettage: Yes Hx Gastric Bypass Surgery: Yes (2002) Other/Comment: [employer]. Polyp removal from vag bleed - Anesthesia Hx Anesthesia: Yes Hx Anesthesia Reactions: No Hx Malignant Hyperthermia: No - Suicidal Assessment Feels Threatened In Home Enviroment: No Family/Social History - Physician Review Nursing Documentation Reviewed: Yes Family/Social History: No Known Family HX Smoking Status: Light Smoker < 10 Cigarettes Daily Hx Alcohol Use: No Hx Substance Use: No Hx Substance Use Treatment: Yes Allergies/Home Meds Allergies/Adverse Reactions: Allergies No Known Allergies Allergy (Verified 11/21/16 10:45) Home Medications: Home Meds Medication Instructions Recorded Confirmed RX: Hydroxyzine HCl 25 mg PO HS 01/30/18 07/17/18 RX: Losartan/Hydrochlorothiazide 1 tab PO DAILY 01/30/18 07/17/18 [Losartan-Hctz 100-12.5 mg Tab] RX: Melatonin 10 mg PO HS 01/30/18 07/17/18 RX: Sitagliptin Phos/Metformin HCl 1 tab PO DAILY 01/30/18 07/17/18 [Janumet 50-500 mg Tablet] Review of Systems - Physician Review All systems were reviewed & negative as marked: Yes - Review of Systems Constitutional: absent: Fevers Respiratory: SOB, Cough Cardiovascular: absent: Chest Pain, ALMAGUER Gastrointestinal: absent: Abdominal Pain, Nausea Musculoskeletal: absent: Back Pain, Neck Pain Neurological: absent: Headache, Dizziness Physical Exam - Physical Exam Narrative Physical Exam (Text): 07/14/18 03:52 Gen: VS reviewed, alert, well developed, well nourished, nontoxic, mild distress. ENT: normal pharynx. Eye: EOMI, PERRL. Neck: no JVD, supple, no adenopathy. CV: regular rate, regular rhythm, no rubs, no murmur, no gallops, S1, S2, pulses equal and strong. Pulm: no distress, Bilateral expiratory wheeze. Good air exchange bilaterally. no rhonchi, breath sounds equal, no rales. Abd: soft, nontender, no guarding, no rebound, no rigidity, normal bowel sounds. Ext: no edema. Skin: good color, no rash, no cyanosis. Psych: responds appropriately to questions, normal affect. Neuro: oriented x 3, CN2-12 intact grossly, motor intact, sensation intact. Vital Signs Temp Pulse Resp BP Pulse Ox 07/14/18 02:11 97.7 F 78 16 144/69 98 Temperature: Afebrile Blood Pressure: Normal Pulse: Regular Respiratory Rate: Normal Appearance: Positive for: Well-Appearing, Non-Toxic, Comfortable Pain Distress: None Mental Status: Positive for: Alert and Oriented X 3 Medical Decision Making ED Course and Treatment: Impression: A 62 year old female presents to the emergency department with a complaint of 2 week duration, worsening cough and shortness of breath. Plan: -- Chest X-ray -- Labs -- Albuterol -- Reassess and disposition Progress Notes: 07/14/18 04:23 - Lab Interpretations I have reviewed the lab results: Yes - RAD Interpretation Narrative RAD Interpretations (Text): 07/14/18 05:05: Chest X-ray read and interpreted by me shows no focal infiltrates. No pneumothorax. No cardiomegaly. Radiology Orders: 07/14/18 03:27 CXR [CHEST TWO VIEWS (PA/LAT)] [RAD] Stat - EKG Interpretation Interpreted by ED Physician: Yes Type: 12 lead EKG - Medication Orders Current Medication Orders: Discontinued Medications Albuterol Sulfate (Albuterol 0.083% Inhal Lisa (2.5 Mg/3 Ml) Ud) 2.5 mg INH STAT STA Stop: 07/14/18 03:28 - Scribe Statement The provider has reviewed the documentation as recorded by the Mary Alice Rogers Provider Scribe Attestation: All medical record entries made by the Scribe were at my direction and personally dictated by me. I have reviewed the chart and agree that the record accurately reflects my personal performance of the history, physical exam, medical decision making, and the department course for this patient. I have also personally directed, reviewed, and agree with the discharge instructions and disposition. Disposition/Present on Arrival - Present on Arrival Any Indicators Present on Arrival: No History of DVT/PE: No History of Uncontrolled Diabetes: No Urinary Catheter: No History of Decub. Ulcer: No History Surgical Site Infection Following: None - Disposition Have Diagnosis and Disposition been Completed?: Yes Diagnosis: Asthma exacerbation Disposition: HOSPITALIZED Disposition Time: 05:04 Patient Plan: Admission Condition: GOOD
[2018-07-14 04:24] LABS: BASO # 0.01 K/mm3 (0.0-2.0); BASO % 0.1 % (0.0-3.0); EOS % 0.1 % (1.5-5.0); GRAN # 8.17 (1.4-6.5); HEMOGLOBIN 11.4 g/dL (12.0-16.0); LYMPH # 0.4 (1.2-3.4); LYMPH % 4.3 % (22.0-35.0); MEAN CELL VOLUME 99.7 fl (80.0-105.0); MEAN CORPUSCULAR HEMOGLOBIN 32.8 pg (25.0-35.0); MEAN CORPUSCULAR HGB CONC 32.9 g/dl (31.0-37.0); MEAN PLATELET VOLUME 8.6 fl (7.0-11.0); MONO % 0.5 % (1.0-6.0); PLATELET COUNT 238 10^3/uL (120.0-450.0); RBC 3.48 10^6/uL (3.5-6.1); RED CELL DISTRIBUTION WIDTH 12.1 % (11.5-14.5); WHITE BLOOD COUNT 8.6 10^3/uL (4.5-11.0)
[2018-07-14 04:28] LABS: ALB/GLOB RATIO 1.3 (1.1-1.8); ALBUMIN 4.3 g/dL (3.0-4.8); ALT/SGPT 27 U/L (7-56); AST/SGOT 28 U/L (14-36); BLOOD UREA NITROGEN 18 mg/dL (7-21); CALCIUM 8.9 mg/dL (8.4-10.5); GFR NON-AFRICAN AMERICAN > 60
[2018-07-14 04:37] LABS: B-TYPE NATRIURETIC PEPTIDE 68.5 pg/mL (0-450)
[2018-07-14] MEDS ORDERED: Albuterol-Ipratrop 3 mg / 0.5 (3 ml) UD IH PRN ×2 (05:38→09:00)
[2018-07-14] MEDS ORDERED: guaiFENesin 200 mg/10 ml Syrup UD PO PRN (05:43)
[2018-07-14 06:07] LABS: LYMPHOCYTE 2 % (22.0-35.0); MONOCYTE 1 % (1.0-6.0); NEUTROPHIL 97 % (50.0-70.0)
[2018-07-14 06:08] LABS: PLATELET ESTIMATE NORMAL (NORMAL)
[2018-07-14] MEDS: MethylPREDNISolone 40 mg Vial IVP SCH ×3 (06:12→21:55)
--- NOTE | 2018-07-14 06:31 | CP.PCM.HP ---
History of Present Illness - History of Present Illness History of Present Illness: Wolfgang Park DO PGY1 - Internal Medicine Director [employer] - Medicine H&P 61F w/ a PMH of HTN, DM, OA, Unspecified obstructive airway disease presented to [facility] ED On 07/14 w/ c/o prod cough, SOB, wheezing x 2wks. Patient reported symptoms began 2 weeks ago and were described as shortness of breath, wheezing, and cough w/ productive yellow sputum. Patient reported that she saw outpatient clinic where she received ventolin, cough medications, prednisone, and Zpak over the past 10 days. She stated she completed courses of prednisone and zpak; and was taking inhaler 2puff Q4 yet has not gotten any relief from medications at this time. [place] [facility] [place] today and requested transfer to [facility] for admission. She denies any fevers/chills arthralgias; reports MSK chest pain assoc w/ coughing and palpation. Denies any sick contact. 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 FamHx: Mom - CHF/DM; Dad - CHF/DM Present on Admission - Present on Admission Any Indicators Present on Admission: No Review of Systems - Review of Systems All systems: reviewed and no additional remarkable complaints except Review of Systems: as per HPI Past Patient History - Infectious Disease Hx of Infectious Diseases: None - Tetanus Immunizations Tetanus Immunization: Unknown - Past Medical History & Family History Past Medical History?: Yes - Past Social History Smoking Status: Light Smoker < 10 Cigarettes Daily - CARDIAC Hx Hypertension: Yes - PULMONARY Hx Respiratory Disorders: No - NEUROLOGICAL Hx Neurological Disorder: No - HEENT Hx HEENT Problems: No - RENAL Hx Chronic Kidney Disease: No - ENDOCRINE/METABOLIC Hx Endocrine Disorders: Yes Hx Diabetes Mellitus Type 2: Yes - HEMATOLOGICAL/ONCOLOGICAL Hx Blood Disorders: No - INTEGUMENTARY Hx Dermatological Problems: No - MUSCULOSKELETAL/RHEUMATOLOGICAL Hx Musculoskeletal Disorders: Yes Hx Back Pain: Yes Hx Falls: Yes Hx Herniated Disk: Yes Hx Osteoarthritis: Yes Hx Spinal Stenosis: Yes - GASTROINTESTINAL Hx Gastrointestinal Disorders: Yes Hx Gall Bladder Disease: Yes Hx Gastroesophageal Reflux: Yes Other/Comment: Gastric bypass - GENITOURINARY/GYNECOLOGICAL Hx Genitourinary Disorders: Yes (ABN VAG BLEEDING) Other/Comment: Vaginal bleeding post menopause - PSYCHIATRIC Hx Anxiety: Yes Hx Depression: Yes (Slight after the passing of her father June 2016) Hx Hallucinations: Yes Hx Substance Use: No - SURGICAL HISTORY Hx Cholecystectomy: Yes Hx Dilation and Curettage: Yes Hx Gastric Bypass Surgery: Yes (2002) Other/Comment: EPIDURALS. Polyp removal from vag bleed - ANESTHESIA Hx Anesthesia: Yes Hx Anesthesia Reactions: No Hx Malignant Hyperthermia: No Meds Allergies/Adverse Reactions: Allergies Allergy/AdvReac Type Severity Reaction Status Date / Time No Known Allergies Allergy Verified 11/21/16 10:45 Physical Exam - Constitutional Appears: Well, Non-toxic, No Acute Distress - Head Exam Head Exam: ATRAUMATIC, NORMOCEPHALIC - Eye Exam Eye Exam: EOMI, Normal appearance, PERRL. absent: Scleral icterus - ENT Exam ENT Exam: Mucous Membranes Moist, Normal Exam - Respiratory Exam Respiratory Exam: Wheezes - Cardiovascular Exam Cardiovascular Exam: RRR, +S1, +S2 - GI/Abdominal Exam GI & Abdominal Exam: Soft. absent: Tenderness - Extremities Exam Extremities exam: Positive for: pedal pulses present (2+ DP/PT BL ). Negative for: pedal edema - Neurological Exam Neurological exam: Alert, CN II-XII Intact, Oriented x3 - Psychiatric Exam Psychiatric exam: Normal Affect, Normal Mood - Skin Skin Exam: Dry, Intact, Normal Color, Warm Results - Vital Signs Recent Vital Signs: Last Vital Signs Temp 97.7 F 07/14/18 02:11 Pulse 78 07/14/18 02:11 Resp 16 07/14/18 02:11 BP 144/69 07/14/18 02:11 Pulse Ox 98 07/14/18 02:11 - Labs Result Diagrams: 07/14/18 04:10 07/14/18 04:10 Labs: Laboratory Results - last 24 hr 07/14/18 07/14/18 07/14/18 04:10 04:10 04:10 WBC 8.6 RBC 3.48 L Hgb 11.4 L Hct 34.7 L MCV 99.7 MCH 32.8 MCHC 32.9 RDW 12.1 Plt Count 238 MPV 8.6 Gran % 95.0 H Lymph % (Auto) 4.3 L Buchanan % (Auto) 0.5 L Eos % (Auto) 0.1 L Baso % (Auto) 0.1 Gran # 8.17 H Lymph # (Auto) 0.4 L Buchanan # (Auto) 0.0 L Eos # (Auto) 0.0 Baso # (Auto) 0.01 Neutrophils % (Manual) 97 H Lymphocytes % (Manual) 2 L Monocytes % (Manual) 1 Platelet Evaluation Normal Sodium 137 Potassium 3.9 Chloride 105 Carbon Dioxide 21 Anion Gap 14 BUN 18 Creatinine 0.7 Est GFR ( Amer) > 60 Est GFR (Non-Af Amer) > 60 Random Glucose 155 H Calcium 8.9 Phosphorus 3.3 Magnesium 2.9 H Total Bilirubin 0.4 AST 28 ALT 27 Alkaline Phosphatase 79 NT-Pro-B Natriuret Pep 68.5 Total Protein 7.5 Albumin 4.3 Globulin 3.2 Albumin/Globulin Ratio 1.3 Assessment & Plan - Assessment and Plan (Free Text) Assessment: 61F w/ a PMH of HTN, DM, OA, Unspecified obstructive airway disease presented to [facility] ED On 07/14 w/ c/o prod cough, SOB, wheezing x 2wks. Patient was found to fail outpatient therapy and subsequently admitted for asthma/COPD exacerbation. Plan: Asthma/ COPD Exacerbation CXR w/ hyperinflated lungs bilaterally; Sputum Cx pending Rapid Flu Pending Duoneb Q6/Q4 prn Robitussin Q4 PRN Solumedrol 40 Q8 No need for ZPAK at this time as patient has already completed therapy outpt w/minimal to no improvement C/w Peak Flow measurements Q8 to monitor therapy response Patient should follow up w/ clinical trial data manager as outpt for PFT and definitive diagnosis Hx DM ISS Low ACHS Accucheck ACHS A1C pending Hold home janumeet Hx HTN C/w home Losartan -HCTZ 100/12.5 QD Hx Insomnia Atarax 25 HS Anemia Workup Normocytic Iron/TIBC/B12/Ferritin/Transferrin/Folate PPX: Pepcid SCD Patient was seen, examined, and discussed w/ attending Dr. Anish PARK DO PGY1 INTERNAL MEDICINE AUDIO VISUAL ENGINEER - Date & Time Date: 07/14/18 Time: 07:03
[2018-07-14] MEDS: Albuterol-Ipratrop 3 mg / 0.5 (3 ml) UD IH SCH ×4 (06:35→19:29)
[2018-07-14 08:36] LABS: IRON 81 ug/dL (45-180)
[2018-07-14 08:41] LABS: HDL CHOLESTEROL 65 mg/dL (29-60)
[2018-07-14 08:45] LABS: % IRON SATURATION 21 % (20-55); TOTAL IRON BINDING CAPACITY 383 ug/dL (265-497)
[2018-07-14 08:55] LABS: LDL CHOLESTEROL 58 mg/dL (0-129)
--- NOTE | 2018-07-14 09:52 | RAD ---
Date of service: 07/14/2018 HISTORY: cough, pneumonia COMPARISON: 11/15/2016 TECHNIQUE: Chest PA and lateral FINDINGS: LUNGS: No active pulmonary disease. PLEURA: No significant pleural effusion identified. No pneumothorax apparent. CARDIOVASCULAR: No aortic atherosclerotic calcification present. No radiographic findings to suggest acute or significant cardiovascular disease. OSSEOUS STRUCTURES: No significant abnormalities. VISUALIZED UPPER ABDOMEN: Normal. OTHER FINDINGS: None. IMPRESSION: No active disease. No significant interval change compared to the prior examination(s).
[2018-07-14] MEDS ORDERED: Non Formulary Medication (Losartan/Hydrochlorothiazide [Losartan-Hctz 100-12.5 Mg Tab] 1 T PO SCH (10:00)
[2018-07-14] MEDS: guaiFENesin 200 mg/10 ml Syrup UD PO SCH ×4 (11:41→21:55)
[2018-07-14] MEDS: guaiFENesin-DM 600-30 mg ER Tab PO SCH ×2 (11:41→18:15)
[2018-07-14] MEDS: cefTRIAXone 1 gm 1 GM/100 ML BAG IVPB SCH (11:42)
[2018-07-14] MEDS: Azithromycin 250 MG in Sodium Chloride 0.9% 250 ML IVPB SCH (11:43)
[2018-07-14] MEDS: Insulin Lispro (humaLOG) LOW Coverage SC SCH ×3 (12:32→22:06)
--- NOTE | 2018-07-14 13:09 | CT ---
Date of service: 07/14/2018 PROCEDURE: CT Chest without contrast HISTORY: persistent cough COMPARISON: None available. TECHNIQUE: Contiguous axial images were obtained through the chest without intravenous contrast enhancement. Sagittal and coronal reconstructions were performed. Radiation dose: Total exam DLP = 759.28 mGy-cm. High-resolution algorithm applied to the conventional protocol. This CT exam was performed using one or more of the following dose reduction techniques: Automated exposure control, adjustment of the mA and/or kV according to patient size, and/or use of iterative reconstruction technique. FINDINGS: LUNGS: Clear lungs. Visualized airway clear Mild parabronchial thickening compatible with bronchitis. No discernible interstitial lung disease. No identifiable pulmonary nodules or masses MEDIASTINUM: Unremarkable thoracic aorta. No aneurysm. Normal sized heart. Main pulmonary artery unremarkable. No vascular congestion. No lymphadenopathy. No aortic atherosclerotic calcification. PLEURA: No pleural fluid. No pneumothorax. BONES: No fracture. No destructive lesion. UPPER ABDOMEN: Evidence of gastric surgery and cholecystectomy.. OTHER FINDINGS: None. IMPRESSION: No significant or acute findings to account for/ related to the clinical presentation. Specifically, no CT manifestations of interstitial lung disease. Mild bronchitic changes.
[2018-07-14 16:52] LABS: FERRITIN 22.1 ng/mL
[2018-07-14 17:28] VITALS: RESP 20
[2018-07-14 18:12] LABS: FOLATE > 20.0 ng/mL
--- NOTE | 2018-07-14 20:40 | CARD ---
APPROVED REPORT Date of service: 07/14/2018 EKG Measurement Heart [id number] <Conclusion> Normal sinus rhythm Normal ECG
[2018-07-14] MEDS: MELATONIN 10 MG PO SCH (21:57)
[2018-07-15] MEDS: guaiFENesin 200 mg/10 ml Syrup UD PO SCH ×6 (01:20→22:11)
[2018-07-15] MEDS: Albuterol-Ipratrop 3 mg / 0.5 (3 ml) UD IH SCH ×4 (01:29→19:57)
[2018-07-15] MEDS: MethylPREDNISolone 40 mg Vial IVP SCH ×3 (05:54→22:11)
[2018-07-15 06:49] LABS: GRAN # 7.01 (1.4-6.5); GRAN % 87.9 % (50.0-68.0); HEMOGLOBIN 10.8 g/dL (12.0-16.0); LYMPH # 0.6 (1.2-3.4); LYMPH % 7.1 % (22.0-35.0); MEAN CELL VOLUME 100.3 fl (80.0-105.0); MEAN CORPUSCULAR HEMOGLOBIN 32.8 pg (25.0-35.0); MEAN CORPUSCULAR HGB CONC 32.7 g/dl (31.0-37.0); MONO # 0.4 (0.1-0.6); RBC 3.29 10^6/uL (3.5-6.1); RED CELL DISTRIBUTION WIDTH 12.5 % (11.5-14.5)
[2018-07-15 06:55] LABS: ALB/GLOB RATIO 1.3 (1.1-1.8); ALBUMIN 3.9 g/dL (3.0-4.8); ALT/SGPT 33 U/L (7-56); AST/SGOT 26 U/L (14-36); BLOOD UREA NITROGEN 23 mg/dL (7-21); CALCIUM 8.9 mg/dL (8.4-10.5); GFR NON-AFRICAN AMERICAN > 60
[2018-07-15] MEDS: Azithromycin 250 MG in Sodium Chloride 0.9% 250 ML IVPB SCH (09:43)
[2018-07-15] MEDS: guaiFENesin-DM 600-30 mg ER Tab PO SCH ×2 (09:44→17:43)
[2018-07-15] MEDS: Insulin Lispro (humaLOG) LOW Coverage SC SCH ×4 (09:47→22:00)
--- NOTE | 2018-07-15 10:03 | CP.PCM.PN ---
<Viktor Linder - Last Filed: 07/15/18 14:22> Subjective - Date & Time of Evaluation Date of Evaluation: 07/15/18 Time of Evaluation: 10:03 - Subjective Subjective: PGY1 Progress Note for Dr. Landers Patient was seen and evaluated at bedside this morning. Patient denies chest pain, SOB, nausea, vomiting, fever, and/or chills. Patient complains of persistent productive cough. Patient otherwise has no complaints. Objective - Vital Signs/Intake and Output Vital Signs (last 24 hours): Temp Pulse Resp BP Pulse Ox 97.6 F 72 20 144/70 98 07/15/18 07:51 07/15/18 07:51 07/15/18 07:51 07/15/18 07:51 07/15/18 07:51 - Medications Medications: Current Medications Acetaminophen (Tylenol 325mg Tab) 650 mg PO Q6H PRN PRN Reason: Pain, moderate (4-7) Last Admin: 07/15/18 06:57 Dose: 650 mg Albuterol/Ipratropium (Duoneb 3 Mg/0.5 Mg (3 Ml) Ud) 3 ml IH [id number] [facility] Last Admin: 07/15/18 08:17 Dose: 3 ml Albuterol/Ipratropium (Duoneb 3 Mg/0.5 Mg (3 Ml) Ud) 3 ml IH Q2 PRN PRN Reason: Wheezing Famotidine (Pepcid) 20 mg PO 1000,2200 [facility] Last Admin: 07/15/18 09:44 Dose: 20 mg Guaifenesin (Robitussin) 200 mg PO Q4H [facility] Last Admin: 07/15/18 09:44 Dose: 200 mg Guaifenesin/Dextromethorphan (Mucinex-Dm 600-30 Mg) 1 tab PO BID [facility] Last Admin: 07/15/18 09:44 Dose: 1 tab Hydrochlorothiazide (Microzide) 12.5 mg PO DAILY [facility] Last Admin: 07/15/18 09:44 Dose: 12.5 mg Hydroxyzine HCl (Atarax) 25 mg PO HS [facility] Last Admin: 07/14/18 21:55 Dose: 25 mg Azithromycin 250 mg/ Sodium (Chloride) 250 mls @ 167 mls/hr IVPB DAILY [facility]; Protocol Last Admin: 07/15/18 09:43 Dose: 167 mls/hr Ceftriaxone Sodium (Rocephin 1 Gram Ivpb) 1 gm in 100 mls @ 100 mls/hr IVPB 1100 [facility]; Protocol Last Admin: 07/14/18 11:42 Dose: 100 mls/hr Insulin Human Lispro (Humalog Low) 0 units SC ACHS [facility]; Protocol Last Admin: 07/15/18 09:47 Dose: 1 unit Losartan Potassium (Cozaar) 100 mg PO DAILY [facility] Last Admin: 07/15/18 09:44 Dose: 100 mg Methylprednisolone (Solu-Medrol) 40 mg IVP Q8 [facility] Last Admin: 07/15/18 05:54 Dose: 40 mg Melatonin 10 Mg ( (Home Med)) 10 mg PO HS [facility] Last Admin: 07/14/18 21:57 Dose: Not Given - Labs Labs: 07/15/18 05:00 07/15/18 05:00 - Additional Findings Additional findings: - Constitutional Appears: Well, Non-toxic, No Acute Distress - Head Exam Head Exam: ATRAUMATIC, NORMOCEPHALIC - Eye Exam Eye Exam: EOMI, Normal appearance, PERRL. absent: Scleral icterus - ENT Exam ENT Exam: Mucous Membranes Moist, Normal Exam - Respiratory Exam Respiratory Exam: Wheezes - Cardiovascular Exam Cardiovascular Exam: RRR, +S1, +S2 - GI/Abdominal Exam GI & Abdominal Exam: Soft. absent: Tenderness - Extremities Exam Extremities exam: Positive for: pedal pulses present (2+ DP/PT BL ). Negative for: pedal edema - Neurological Exam Neurological exam: Alert, CN II-XII Intact, Oriented x3 - Psychiatric Exam Psychiatric exam: Normal Affect, Normal Mood - Skin Skin Exam: Dry, Intact, Normal Color, Warm Assessment and Plan - Assessment and Plan (Free Text) Assessment: 61-year-old Female with a PMH of HTN, DM, OA, Unspecified obstructive airway disease presented [place] [facility] On 07[place]14 with a chief complaint of productive cough, SOB, wheezing x 2 weeks. Patient was found to fail outpatient therapy and subsequently admitted for failed outpatient therapy x4 days with persistent symptoms Plan: Asthma/ COPD Exacerbation - CXR w/ hyperinflated lungs bilaterally; - Sputum Cx pending - Rapid influenza type A,B (EIA) negative - Continue Duoneb Q6/Q4H prn - Continue Robitussin Q4H PRN - Continue Solumedrol 40 Q8H - Antibiotics: IV Rocephin, IV Azithromycin - Continue with Peak Flow measurements Q8 to monitor therapy response - Patient should follow up w/ medical equipment repairer as out-patient for PFT and definitive diagnosis Hx DM - ISS Low ACHS - Accucheck ACHS - A1C pending - Hold home janumeet Hx HTN - Continue home Losartan - HCTZ 100/12.5 QD Hx Insomnia - Atarax 25 HS Anemia Workup - Normocytic - Iron/TIBC/B12/Ferritin/Transferrin/Folate PPX: - Pepcid - SCD Patient was seen and case discussed in detail with Dr. Landers <Beronica Landers - Last Filed: 07/15/18 15:32> Objective - Vital Signs/Intake and Output Vital Signs (last 24 hours): Temp Pulse Resp BP Pulse Ox 97.6 F 72 20 144/70 98 07/15/18 07:51 07/15/18 07:51 07/15/18 07:51 07/15/18 07:51 07/15/18 07:51 - Medications Medications: Current Medications Acetaminophen (Tylenol 325mg Tab) 650 mg PO Q6H PRN PRN Reason: Pain, moderate (4-7) Last Admin: 07/15/18 13:33 Dose: 650 mg Albuterol/Ipratropium (Duoneb 3 Mg/0.5 Mg (3 Ml) Ud) 3 ml IH [id number] [facility] Last Admin: 07/15/18 13:40 Dose: 3 ml Albuterol/Ipratropium (Duoneb 3 Mg/0.5 Mg (3 Ml) Ud) 3 ml IH Q2 PRN PRN Reason: Wheezing Famotidine (Pepcid) 20 mg PO 1000,2200 [facility] Last Admin: 07/15/18 09:44 Dose: 20 mg Guaifenesin (Robitussin) 200 mg PO Q4H [facility] Last Admin: 07/15/18 13:33 Dose: 200 mg Guaifenesin/Dextromethorphan (Mucinex-Dm 600-30 Mg) 1 tab PO BID [facility] Last Admin: 07/15/18 09:44 Dose: 1 tab Hydrochlorothiazide (Microzide) 12.5 mg PO DAILY [facility] Last Admin: 07/15/18 09:44 Dose: 12.5 mg Hydroxyzine HCl (Atarax) 25 mg PO HS [facility] Last Admin: 07/14/18 21:55 Dose: 25 mg Azithromycin 250 mg/ Sodium (Chloride) 250 mls @ 167 mls/hr IVPB DAILY [facility]; Protocol Last Admin: 07/15/18 09:43 Dose: 167 mls/hr Ceftriaxone Sodium (Rocephin 1 Gram Ivpb) 1 gm in 100 mls @ 100 mls/hr IVPB 1100 [facility]; Protocol Last Admin: 07/15/18 11:42 Dose: 100 mls/hr Insulin Human Lispro (Humalog Low) 0 units SC ACHS [facility]; Protocol Last Admin: 07/15/18 12:08 Dose: 1 unit Losartan Potassium (Cozaar) 100 mg PO DAILY [facility] Last Admin: 07/15/18 09:44 Dose: 100 mg Methylprednisolone (Solu-Medrol) 40 mg IVP Q8 [facility] Last Admin: 07/15/18 13:34 Dose: 40 mg Melatonin 10 Mg ( (Home Med)) 10 mg PO [facility] Last Admin: 07/14/18 21:57 Dose: Not Given - Labs Labs: 07/15/18 05:00 07/15/18 05:00 Attending/Attestation - Attestation I have personally seen and examined this patient.: Yes I have fully participated in the care of the patient.: Yes I have reviewed all pertinent clinical information, including history, physical exam and plan: Yes Notes (Text): 07/15/18 15:28 Attending note ; Patient seen and examined with the resident . Patient is alert and awake . Still complaining of significant cough and shortness of breath on exertion . Complaining of wheezing, minimal sputum production. Patient is a 62-year-old female with PMH of HTN, DM, OA, asthma is admitted with productive cough, shortness of breath and wheezing. 1. Acute bronchitis with asthma exacerbation; Patient failed outpatient nebulizer, po prednisone and po antibiotics treatment. Continue DuoNeb around the clock. Continue oxygen when necessary. Started on IV Solu-Medrol. Continue IV Rocephin and Zithromax. 2. Cough; continue Robitussin. 3. CT chest showed bronchitis. 4. History of smoking; complete smoking cessation is strongly advised. Advised to follow-up with PMD as outpatient for pulmonary function test. Possible discharge home tomorrow. Follow-up with PMD Dr. Watt upon discharge. 07/15/18 15:32
[2018-07-15] MEDS: cefTRIAXone 1 gm 1 GM/100 ML BAG IVPB SCH (11:42)
[2018-07-15] MEDS: MELATONIN 10 MG PO SCH (22:00)
[2018-07-16] MEDS: Albuterol-Ipratrop 3 mg / 0.5 (3 ml) UD IH SCH ×4 (01:01→20:21)
[2018-07-16] MEDS: guaiFENesin 200 mg/10 ml Syrup UD PO SCH ×6 (01:35→21:36)
[2018-07-16] MEDS: MethylPREDNISolone 40 mg Vial IVP SCH ×2 (05:13→21:36)
[2018-07-16 06:39] LABS: GRAN # 8.6 (1.4-6.5); HEMOGLOBIN 10.7 g/dL (12.0-16.0); LYMPH # 0.7 (1.2-3.4); LYMPH % 6.7 % (22.0-35.0); MEAN CELL VOLUME 100.3 fl (80.0-105.0); MEAN CORPUSCULAR HEMOGLOBIN 32.7 pg (25.0-35.0); MEAN CORPUSCULAR HGB CONC 32.6 g/dl (31.0-37.0); MEAN PLATELET VOLUME 8.9 fl (7.0-11.0); MONO # 0.5 (0.1-0.6); MONO % 5.3 % (1.0-6.0); RBC 3.27 10^6/uL (3.5-6.1); RED CELL DISTRIBUTION WIDTH 12.4 % (11.5-14.5); WHITE BLOOD COUNT 9.8 10^3/uL (4.5-11.0)
[2018-07-16 07:13] LABS: ALB/GLOB RATIO 1.3 (1.1-1.8); ALBUMIN 3.9 g/dL (3.0-4.8); ALT/SGPT 27 U/L (7-56); AST/SGOT 30 U/L (14-36); BLOOD UREA NITROGEN 26 mg/dL (7-21); CALCIUM 9.1 mg/dL (8.4-10.5); GFR NON-AFRICAN AMERICAN > 60
[2018-07-16] MEDS: Insulin Lispro (humaLOG) LOW Coverage SC SCH ×4 (09:09→21:44)
[2018-07-16] MEDS: guaiFENesin-DM 600-30 mg ER Tab PO SCH ×2 (09:10→17:42)
[2018-07-16] MEDS: Cefpodoxime (Vantin) 200 mg Tab PO SCH ×2 (09:12→21:37)
[2018-07-16] MEDS ORDERED: MethylPREDNISolone 40 mg Vial IVP SCH (12:00)
--- NOTE | 2018-07-16 12:59 | CP.PCM.PN ---
<Avi Elaine - Last Filed: 07/16/18 16:37> Subjective - Date & Time of Evaluation Date of Evaluation: 07/16/18 Time of Evaluation: 12:59 - Subjective Subjective: INTERNAL MEDICINE PROGRESS NOTE FOR HOSPITALIST SERVICE AVI ELAINE PGY-1 Pt seen and examined at bedside this am. No acute nursing events overnight. Pt continues to complaints of some shortness of breath. Pt notes she has had some vaginal bleeding that she has been seeing a student assistance counselor for. She denies fevers, chills, headache, dizziness, chest pain, palpitations, nausea, vomiting, constipation, diarrhea, dysuria. Objective - Vital Signs/Intake and Output Vital Signs (last 24 hours): Temp Pulse Resp BP Pulse Ox 97.5 F L 75 20 141/76 98 07/16/18 08:12 07/16/18 08:12 07/16/18 08:12 07/16/18 08:12 07/16/18 08:12 Intake and Output: 07/16/18 07/16/18 06:59 18:59 Intake Total 600 Balance 600 - Medications Medications: Current Medications Acetaminophen (Tylenol 325mg Tab) 650 mg PO Q6H PRN PRN Reason: Pain, moderate (4-7) Last Admin: 07/16/18 06:45 Dose: 650 mg Albuterol/Ipratropium (Duoneb 3 Mg/0.5 Mg (3 Ml) Ud) 3 ml IH [id number] [facility] Last Admin: 07/16/18 08:24 Dose: 3 ml Albuterol/Ipratropium (Duoneb 3 Mg/0.5 Mg (3 Ml) Ud) 3 ml IH Q2 PRN PRN Reason: Wheezing Azithromycin (Zithromax) 250 mg PO DAILY [facility] Last Admin: 07/16/18 09:12 Dose: 250 mg Cefpodoxime Proxetil (Vantin) 200 mg PO Q12 [facility] Last Admin: 07/16/18 09:12 Dose: 200 mg Famotidine (Pepcid) 20 mg PO 1000,2200 [facility] Last Admin: 07/16/18 09:11 Dose: 20 mg Guaifenesin (Robitussin) 200 mg PO Q4H [facility] Last Admin: 07/16/18 09:12 Dose: 200 mg Guaifenesin/Dextromethorphan (Mucinex-Dm 600-30 Mg) 1 tab PO BID [facility] Last Admin: 07/16/18 09:10 Dose: 1 tab Hydrochlorothiazide (Microzide) 12.5 mg PO DAILY [facility] Last Admin: 07/16/18 09:10 Dose: 12.5 mg Hydroxyzine HCl (Atarax) 25 mg PO HS [facility] Last Admin: 07/15/18 22:11 Dose: 25 mg Insulin Human Lispro (Humalog Low) 0 units SC [facility]; Protocol Last Admin: 07/16/18 09:09 Dose: 1 unit Losartan Potassium (Cozaar) 100 mg PO DAILY [facility] Last Admin: 07/16/18 09:07 Dose: 100 mg Methylprednisolone (Solu-Medrol) 40 mg IVP Q12 [facility] Melatonin 10 Mg ( (Home Med)) 10 mg PO [facility] Last Admin: 07/15/18 22:00 Dose: Not Given - Labs Labs: 07/16/18 06:00 07/16/18 06:00 - Constitutional Appears: Well, Non-toxic, No Acute Distress - Head Exam Head Exam: NORMAL INSPECTION, NORMOCEPHALIC - Eye Exam Eye Exam: EOMI, Normal appearance - ENT Exam ENT Exam: Mucous Membranes Moist, Normal Exam - Neck Exam Neck Exam: Normal Inspection. absent: Meningismus - Respiratory Exam Respiratory Exam: Wheezes (b/l lower lobes), NORMAL BREATHING PATTERN - Cardiovascular Exam Cardiovascular Exam: REGULAR RHYTHM, +S1, +S2 - GI/Abdominal Exam GI & Abdominal Exam: Soft, Normal Bowel Sounds. absent: Tenderness - Extremities Exam Extremities Exam: Normal Inspection. absent: Calf Tenderness - Back Exam Back Exam: NORMAL INSPECTION - Neurological Exam Neurological Exam: Alert, Awake, Oriented x3 - Psychiatric Exam Psychiatric exam: Normal Affect, Normal Mood - Skin Skin Exam: Dry, Warm Assessment and Plan - Assessment and Plan (Free Text) Assessment: 61-year-old Female with a PMH of HTN, DM, OA, Unspecified obstructive airway disease presented to [facility] [place] ED On 07/14 with a chief complaint of productive cough, SOB, wheezing x 2 weeks. Patient was found to fail outpatient therapy and subsequently admitted for failed outpatient therapy x4 days with persistent symptoms Plan: Asthma/ COPD Exacerbation CXR w/ hyperinflated lungs bilaterally; - Sputum Cx pending - Rapid influenza type A,B (EIA) negative Decreased IV solumedrol from 40q8h to 40q12h Continue oral cefpodoxime, oral azithromycin Continue Duoneb Q6sch/Q4H prn Continue Robitussin Q4H PRN Continue with Peak Flow measurements Q8 to monitor therapy response Hx DM ISS Low ACHS Accucheck ACHS A1C pending Hold home janumeet Hx HTN Continue home Losartan 100mg qd HCTZ 100/12.5 QD Hx Insomnia Continue Atarax 25 HS Anemia Workup Normocytic Iron/TIBC/B12/Ferritin/Transferrin/Folate PPX: GI: Pepcid DVT: SCD Dispo: f/u PT eval and six minute walk test. F/u outpatient remote recruiter for PFTs Patient was seen and case discussed in detail with attending physician, Dr. Gage Elaine PGY1 <Margarita Almonte R - Last Filed: 07/17/18 08:30> Objective - Vital Signs/Intake and Output Vital Signs (last 24 hours): Temp Pulse Resp BP Pulse Ox 97.7 F 62 20 134/62 95 07/17/18 08:17 07/17/18 08:17 07/17/18 08:17 07/17/18 08:17 07/17/18 08:17 Intake and Output: 07/17/18 07/17/18 06:59 18:59 Intake Total 2160 Balance 2160 - Medications Medications: Current Medications Acetaminophen (Tylenol 325mg Tab) 650 mg PO Q6H PRN PRN Reason: Pain, moderate (4-7) Last Admin: 07/16/18 17:43 Dose: 650 mg Albuterol/Ipratropium (Duoneb 3 Mg/0.5 Mg (3 Ml) Ud) 3 ml IH [id number] [facility] Last Admin: 07/17/18 08:17 Dose: 3 ml Albuterol/Ipratropium (Duoneb 3 Mg/0.5 Mg (3 Ml) Ud) 3 ml IH Q2 PRN PRN Reason: Wheezing Azithromycin (Zithromax) 250 mg PO DAILY [facility] Last Admin: 07/16/18 09:12 Dose: 250 mg Cefpodoxime Proxetil (Vantin) 200 mg PO Q12 [facility] Last Admin: 07/16/18 21:37 Dose: 200 mg Famotidine (Pepcid) 20 mg PO 1000,2200 [facility] Last Admin: 07/16/18 21:36 Dose: 20 mg Guaifenesin (Robitussin) 200 mg PO Q4H [facility] Last Admin: 07/17/18 05:58 Dose: 200 mg Guaifenesin/Dextromethorphan (Mucinex-Dm 600-30 Mg) 1 tab PO BID [facility] Last Admin: 07/16/18 17:42 Dose: 1 tab Hydrochlorothiazide (Microzide) 12.5 mg PO DAILY [facility] Last Admin: 07/16/18 09:10 Dose: 12.5 mg Hydroxyzine HCl (Atarax) 25 mg PO HS [facility] Last Admin: 07/16/18 21:36 Dose: 25 mg Insulin Human Lispro (Humalog Low) 0 units SC [facility]; Protocol Last Admin: 07/16/18 21:44 Dose: Not Given Losartan Potassium (Cozaar) 100 mg PO DAILY [facility] Last Admin: 07/16/18 09:07 Dose: 100 mg Methylprednisolone (Solu-Medrol) 40 mg IVP Q12 [facility] Last Admin: 07/16/18 21:36 Dose: 40 mg Melatonin 10 Mg ( (Home Med)) 10 mg PO [facility] Last Admin: 07/16/18 21:44 Dose: Not Given - Labs Labs: 07/17/18 06:00 07/17/18 06:30 Attending/Attestation - Attestation I have personally seen and examined this patient.: Yes I have fully participated in the care of the patient.: Yes I have reviewed all pertinent clinical information, including history, physical exam and plan: Yes Notes (Text): Patient seen and examined by me with resident at 10:15 AM on 07/16/18. Case including HPI, physical exam, and assessment and plan discussed with resident. Agree with above with following additions/corrections. Patient is 61-year-old female past medical history significant for hypertension, type 2 diabetes, osteoarthritis, and unspecified obstructive airway disease presented to the emergency room with productive cough, shortness of breath, and wheezing for 2 weeks. Patient states that she feels a little better. Shortness of breath has improved. However, patient states that she is feeling short of breath with ambulating. Cough has improved. Patient denies chest pain and palpitations. No headaches or dizziness. No fevers or chills. No nausea, vomiting, or abdominal pain. No dysuria. No diarrhea or constipation. Physical exam: General: Awake and alert sitting up in bed in no acute distress HEENT: Normocephalic, atraumatic. Extraocular muscles intact, pupils equal and reactive, no scleral icterus. Oropharynx is pink and moist. No pharyngeal erythema or exudate appreciated. Neck is supple. Cardiovascular: Regular rhythm. Normal S1 and S2. No murmurs, rubs, or gallops appreciated Pulmonary: Normal respiratory effort. Decreased breath sounds. Mild expiratory wheezing throughout. No rhonchi or rales appreciated. Gastrointestinal: Soft, nondistended. Nontender. Positive bowel sounds all 4 quadrants. No guarding. Musculoskeletal: Moves all extremities. No calf tenderness. No edema appreciated. Central nervous system: AAOx3, CN 2-12 grossly intact. Dermatologic: Skin warm and dry. Assessment and plan: Patient is 61-year-old female past medical history significant for hypertension, type 2 diabetes, osteoarthritis, and unspecified obstructive airway disease presented to the emergency room with productive cough, shortness of breath, and wheezing for 2 weeks. 1. Shortness of breath. Likely COPD exacerbation secondary to smoking history and acute bronchitis. Chest x-ray per radiologist showed no active disease. CT chest per radiologist showed no CT manifestations of interstitial lung disease, mild bronchitic changes. Continue nebulizer treatments. Continue Vantin and Zithromax. Continue Robitussin as needed. Continue Solu-Medrol. Continue O2 via nasal cannula as needed. 2. DM type II. Blood sugars well controlled. Hemoglobin A1c 5.1. Home Janumet held for now. Continue with insulin sliding scale. Continue to monitor Accu- Cheks. 3. Essential hypertension. Continue hydrochlorothiazide and Cozaar 4. Anemia. Patient asymptomatic. No signs of acute bleeding. Iron within normal limits. Transferrin, ferritin with normal limits. Patient to have further work up with primary care doctor as outpatient. 5. GI/DVT prophylaxis. Pepcid/SCDs and ambulation. 6. Patient is a full code. Case was discussed in detail with the patient regarding current diagnosis and treatment plan. All questions answered.
[2018-07-16] MEDS: MELATONIN 10 MG PO SCH (21:44)
[2018-07-17] MEDS: guaiFENesin 200 mg/10 ml Syrup UD PO SCH ×3 (01:49→08:54)
[2018-07-17] MEDS: Albuterol-Ipratrop 3 mg / 0.5 (3 ml) UD IH SCH ×2 (01:53→08:17)
[2018-07-17 06:55] LABS: GRAN # 5.85 (1.4-6.5); GRAN % 81.2 % (50.0-68.0); HEMOGLOBIN 10.7 g/dL (12.0-16.0); LYMPH # 0.9 (1.2-3.4); LYMPH % 12.3 % (22.0-35.0); MEAN CELL VOLUME 99.4 fl (80.0-105.0); MEAN CORPUSCULAR HEMOGLOBIN 32.4 pg (25.0-35.0); MEAN CORPUSCULAR HGB CONC 32.6 g/dl (31.0-37.0); MEAN PLATELET VOLUME 8.5 fl (7.0-11.0); MONO # 0.5 (0.1-0.6); MONO % 6.5 % (1.0-6.0); RBC 3.3 10^6/uL (3.5-6.1); RED CELL DISTRIBUTION WIDTH 12.4 % (11.5-14.5); WHITE BLOOD COUNT 7.2 10^3/uL (4.5-11.0)
[2018-07-17 07:26] LABS: ALB/GLOB RATIO 1.3 (1.1-1.8); ALBUMIN 3.8 g/dL (3.0-4.8); ALT/SGPT 42 U/L (7-56); AST/SGOT 36 U/L (14-36); BLOOD UREA NITROGEN 21 mg/dL (7-21); CALCIUM 8.9 mg/dL (8.4-10.5); GFR NON-AFRICAN AMERICAN > 60
[2018-07-17 08:18] VITALS: BP 134/62; PULSE 62; TEMP 97.7; O2SAT 95
[2018-07-17] MEDS: Insulin Lispro (humaLOG) LOW Coverage SC SCH ×2 (08:53→08:54)
[2018-07-17] MEDS: guaiFENesin-DM 600-30 mg ER Tab PO SCH (09:57)
[2018-07-17] MEDS: MethylPREDNISolone 40 mg Vial IVP SCH (09:57)
[2018-07-17] MEDS: Cefpodoxime (Vantin) 200 mg Tab PO SCH (09:58)
--- NOTE | 2018-07-17 12:47 | CP.PCM.DIS ---
Provider - Provider Date of Admission: 07/14/18 06:08 Attending physician: Beronica Landers MD Primary care physician: Scottie Watt DO Time Spent in preparation of Discharge (in minutes): 45 Diagnosis - Discharge Diagnosis (1) COPD exacerbation Status: Resolved Priority: Medium (2) Diabetes insipidus Status: Chronic (3) HTN (hypertension) Status: Chronic (4) Anemia Status: Chronic Hospital Course - Lab Results Lab Results: Most Recent Lab Values WBC 7.2 10^3/uL (4.5-11.0) D 07/17/18 06:00 RBC 3.30 10^6/uL (3.5-6.1) L 07/17/18 06:00 Hgb 10.7 g/dL (12.0-16.0) L 07/17/18 06:00 Hct 32.8 % (36.0-48.0) L 07/17/18 06:00 MCV 99.4 fl (80.0-105.0) 07/17/18 06:00 MCH 32.4 pg (25.0-35.0) 07/17/18 06:00 MCHC 32.6 g/dl (31.0-37.0) 07/17/18 06:00 RDW 12.4 % (11.5-14.5) 07/17/18 06:00 Plt Count 246 10^3/uL (120.0-450.0) 07/17/18 06:00 MPV 8.5 fl (7.0-11.0) 07/17/18 06:00 Gran % 81.2 % (50.0-68.0) H 07/17/18 06:00 Lymph % (Auto) 12.3 % (22.0-35.0) L 07/17/18 06:00 [place] % (Auto) 6.5 % (1.0-6.0) H 07/17/18 06:00 Eos % (Auto) 0.0 % (1.5-5.0) L 07/17/18 06:00 Baso % (Auto) 0.0 % (0.0-3.0) 07/17/18 06:00 Gran # 5.85 (1.4-6.5) 07/17/18 06:00 Lymph # (Auto) 0.9 (1.2-3.4) L 07/17/18 06:00 [place] # (Auto) 0.5 (0.1-0.6) 07/17/18 06:00 Eos # (Auto) 0.0 (0.0-0.7) 07/17/18 06:00 Baso # (Auto) 0.00 K/mm3 (0.0-2.0) 07/17/18 06:00 Neutrophils % (Manual) 97 % (50.0-70.0) H 07/14/18 04:10 Lymphocytes % (Manual) 2 % (22.0-35.0) L 07/14/18 04:10 Monocytes % (Manual) 1 % (1.0-6.0) 07/14/18 04:10 Platelet Evaluation Normal (NORMAL) 07/14/18 04:10 Sodium 134 mmol/L (132-148) 07/17/18 06:30 Potassium 4.4 mmol/L (3.6-5.0) 07/17/18 06:30 Chloride 103 mmol/L (98-107) 07/17/18 06:30 Carbon Dioxide 26 mmol/L (21-33) 07/17/18 06:30 Anion Gap 10 (10-20) 07/17/18 06:30 BUN 21 mg/dL (7-21) 07/17/18 06:30 Creatinine 0.6 mg/dl (0.7-1.2) L 07/17/18 06:30 Est GFR ( Amer) > 60 07/17/18 06:30 Est GFR (Non-Af Amer) > 60 07/17/18 06:30 POC Glucose (mg/dL) 190 mg/dL (65-110) H 07/17/18 11:40 Random Glucose 179 mg/dL (70-110) H 07/17/18 06:30 Hemoglobin A1c 5.1 % (4.2-6.5) 07/14/18 04:10 Calcium 8.9 mg/dL (8.4-10.5) 07/17/18 06:30 Phosphorus 3.3 mg/dL (2.5-4.5) 07/14/18 04:10 Magnesium 2.9 mg/dL (1.7-2.2) H 07/14/18 04:10 Iron 81 ug/dL (45-180) 07/14/18 04:10 TIBC 383 ug/dL (265-497) 07/14/18 04:10 % Saturation 21 % (20-55) 07/14/18 04:10 Transferrin 300.66 mg/dL (206-381) 07/14/18 10:45 Ferritin 22.1 ng/mL 07/14/18 04:10 Total Bilirubin 0.4 mg/dL (0.2-1.3) 07/17/18 06:30 AST 36 U/L (14-36) 07/17/18 06:30 ALT 42 U/L (7-56) 07/17/18 06:30 Alkaline Phosphatase 62 U/L (38-126) 07/17/18 06:30 NT-Pro-B Natriuret Pep 68.5 pg/mL (0-450) 07/14/18 04:10 Total Protein 6.7 g/dL (5.8-8.3) 07/17/18 06:30 Albumin 3.8 g/dL (3.0-4.8) 07/17/18 06:30 Globulin 2.9 gm/dL 07/17/18 06:30 Albumin/Globulin Ratio 1.3 (1.1-1.8) 07/17/18 06:30 Triglycerides 44 mg/dL (35-160) 07/14/18 04:10 Cholesterol 141 mg/dL (130-200) 07/14/18 04:10 LDL Cholesterol Direct 58 mg/dL (0-129) 07/14/18 04:10 HDL Cholesterol 65 mg/dL (29-60) H 07/14/18 04:10 Vitamin B12 597 pg/mL (239-931) 07/14/18 04:10 Folate > 20.0 ng/mL 07/14/18 04:10 Influenza Typ A,B (EIA) Negative for flu a/b (NEGATIVE) 07/14/18 15:00 - Hospital Course Hospital Course: Upon Admission 61F w/ a PMH of HTN, DM, OA, Unspecified obstructive airway disease [place] [facility] [place] w/ c/o prod cough, SOB, wheezing x 2wks. Patient reported symptoms began 2 weeks ago and were described as shortness of breath, wheezing, and cough w/ productive yellow sputum. Patient reported that she saw outpatient clinic where she received ventolin, cough medications, prednisone, and Zpak over the past 10 days. She stated she completed courses of prednisone and zpak; and was taking inhaler 2puff Q4 yet has not gotten any relief from medications at this time. Hospital Course Chest xray revealed hyperinflated lungs with no infiltrates. Rapid flu was negative. Pt was treated as COPD exacerbation. Pt was treated with IV solumedrol initially at 40mg [id number] which was subsequently switched to 40mg q12 hours. She was also treated for CAP with azithromycin and rocephin. Pt received scheduled and prn duoneb treatments. Pt was prescribed robitussin and mucinex for cough. Pt's SOB improved throughout hospital course. Upon Discharge Pt reports improvement in symptoms. Wheezing has improved significantly. Vital signs are stable. Labs are within normal limites. Pt given instructions for follow up with PMD, side laster tack and loaf counter. Discharge Exam - Head Exam Head Exam: NORMAL INSPECTION, NORMOCEPHALIC - Eye Exam Eye Exam: EOMI, Normal appearance - ENT Exam ENT Exam: Mucous Membranes Moist, Normal Exam - Respiratory Exam Respiratory Exam: Clear to PA & Lateral, NORMAL BREATHING PATTERN, UNREMARKABLE - Cardiovascular Exam Cardiovascular Exam: REGULAR RHYTHM, +S1, +S2 - GI/Abdominal Exam GI & Abdominal Exam: Normal Bowel Sounds, Unremarkable - Extremities Exam Extremities exam: normal inspection - Back Exam Back exam: NORMAL INSPECTION - Neurological Exam Neurological exam: Alert, Oriented x3 - Psychiatric Exam Psychiatric exam: Normal Affect, Normal Mood - Skin Skin Exam: Dry, Intact, Warm Discharge Plan - Discharge Medications Prescriptions: Azithromycin 250 mg PO DAILY #1 tablet Cefpodoxime [Vantin] 200 mg PO Q12H 4 Days #8 tab - Follow Up Plan Condition: GOOD Disposition: HOME/ ROUTINE Instructions: Asthma in Adults Additional Instructions: You have been prescribed a new medication, "Prednisone" to take after you are discharged from the hospital. Please take this medication as directed on the prescription You have been prescribed two antibiotics, azithromycin and cefpodoxime. Please take azithromycin on 07/18/18. Please take these medications as directed. Please continue taking your home inhaler, "Ventolin" as needed for shortness of breath Please follow up with your primary care physician, Dr. Watt, within 3-5 days of being discharged from the hospital Please follow up with your side laster tack, Dr Jolly Almonte for your continued work up of vaginal bleeding within 3-5 days You should make an appointment with a loaf counter (lung doctor) within 1 week of being discharged If your symptoms return, please visit the nearest emergency room Referrals: Jolly Almonte MD [Medical Doctor] - Scottie Watt, [Primary Care Provider] -
== END 2018-07-17 14:30 | disposition home or self-care (01) | DRG 191 ==
LOC: ED 02:01 → ERH 05:04 → INTOOBSV 05:04 → ERH 05:52 → OBSVTOIN 06:08 → 3RNO 08:07
PROVIDERS: ADMIT Hospitalist; ATTEND Internal Medicine
DX: J44.1 Chronic obstructive pulmonary disease with (acute) exacerbation (principal); J45.901 Unspecified asthma with (acute) exacerbation; E23.2 Diabetes insipidus; J44.0 Chronic obstructive pulmonary disease with (acute) lower respiratory infection; J20.9 Acute bronchitis, unspecified; I10 Essential (primary) hypertension; E11.9 Type 2 diabetes mellitus without complications; K21.9 Gastro-esophageal reflux disease without esophagitis; D64.9 Anemia, unspecified; M19.90 Unspecified osteoarthritis, unspecified site; F17.200 Nicotine dependence, unspecified, uncomplicated; G47.00 Insomnia, unspecified; Z98.84 Bariatric surgery status; Z79.84 Long term (current) use of oral hypoglycemic drugs; Z83.3 Family history of diabetes mellitus